=== PATIENT | male | born 1950 | race Caucasian/White ===

== ENCOUNTER 2024-01-21 15:13 | Outpatient (AMB) | payer MEDICARE, BC, SELFPAY ==
--- NOTE | 2024-01-21 15:16 | MHC.OFFVIS ---
Vital Signs 01/21/24 15:32 Height 6 ft Weight 151 lb BMI 20.5 BP 121/72 Blood Pressure Location Lt brachial Position Sitting Pulse 59 Intake Visit Reasons: bilat. ing hernias (left worse than right) VIP Intake Note: Patient is seen in office for evaluation of bilateral inguinal hernias. Pt c/o: notice a lump on both groin, reducible, had rt groin hernia and lt groin varicose repair in 1981, denies n/v/d/c, no prior imaging Accompanied by: Self / Same As Patient Allergies amoxicillin [From Augmentin] Allergy (Mild, Verified 01/21/24 16:14) unknown azithromycin [From Zithromax] Allergy (Mild, Verified 01/21/24 16:14) Swelling cephalexin [From Keflex] Allergy (Mild, Verified 01/21/24 16:14) Abdominal Pain clavulanic acid [From Augmentin] Allergy (Mild, Verified 01/21/24 16:14) unknown erythromycin base Allergy (Mild, Verified 01/21/24 16:14) Rash fluoxetine [From Prozac] Allergy (Mild, Verified 01/21/24 16:14) Unknown hyoscyamine [From Levbid] Allergy (Mild, Verified 01/21/24 16:14) dry mouth and unsteady mirtazapine Allergy (Mild, Verified 01/21/24 16:14) Unknown Sulfa (Sulfonamide Antibiotics) Allergy (Mild, Verified 01/21/24 16:14) Swelling venlafaxine [From Effexor] Allergy (Mild, Verified 01/21/24 16:14) Unknown milk products Allergy (Mild, Uncoded 01/21/24 16:14) Unknown HPI Comments Details: 73-year-old male patient presenting for evaluation of bilateral inguinal hernias. He reports a prior history of right inguinal hernia repair without mesh as well as a left inguinal varicocele repaired in the . He recently began using a rowing machine and developed pain and swelling in the bilateral groins left greater than right. He now feels the hernia has recurred especially on the left side. He is having some discomfort especially with prolonged standing or lifting. He denies nausea or vomiting but does have alternating diarrhea and constipation. He has alternating IBS D and IBS C and recently started prednisone which seems to be helping his symptoms. He has a known history of an aortic aneurysm which is being followed but most recently measured 4.8 cm. He also had occlusion of the LAD and a artery and underwent stent placement x2. He is followed by Cardiology at [facility]. He is requesting repair of the bilateral inguinal hernias because of the increased discomfort. [facility] Medical History (Updated 01/22/24 @ 16:10 by Zurdo Lindsay MD) Patent foramen ovale Labile hypertension IBS (irritable bowel syndrome) Hyperlipidemia History of anterior wall myocardial infarction Hiatal hernia GERD (gastroesophageal reflux disease) Coronary artery disease Surgical History (Updated 01/21/24 @ 16:15 by KUNAL Guillen) Hx of colonoscopy Hx of varicose vein ligation and stripping (~1981) Hx of right inguinal hernia repair (~1981) Social History (Updated 01/21/24 @ 16:15 by KUNAL Guillen) Alcohol intake: never Patient Tobacco Use Status: Never used Tobacco Review of Systems Const All systems reviewed & are unremarkable except as noted in HPI and below Denies chills, Denies fever(s), Denies headache(s), Denies poor appetite and Denies weakness ENT Denies headache(s) Card Denies chest pain, Denies irregular heart rhythm, Denies palpitations, Denies dyspnea and Reports slow heart rate Resp Denies cough, Denies excessive phlegm production and Denies dyspnea GI Denies abdominal pain, Denies bloating, Denies change in bowel habits, Denies constipation, Denies heartburn, Denies diarrhea, Denies nausea and Denies vomiting Denies difficulty urinating and Denies urinary frequency Musc Denies back pain, Denies muscle weakness and Denies numbness Skin/Breast Denies changing lesions and Denies unusual bruising Neuro Denies headache(s), Denies numbness, Denies paresthesias and Denies weakness Psych Denies anxiety and Denies depression Endo Denies palpitations Dimas/Lymph Denies lymphadenopathy Physical Exam Vital Signs: Last Vital Signs Pulse 59 01/21/24 15:32 BP 121/72 01/21/24 15:32 BMI result Body Mass Index 20.5 Const General: cooperative and no acute distress Nutritional Appearance: well nourished Orientation/consciousness: patient oriented x3 Limitations: no limitations HEENT Head: Yes normocephalic and Yes atraumatic Ears: hearing grossly normal bilaterally Resp Effort & Inspection: normal respiratory effort, no audible wheezes, no cough and no respiratory distress Cardio Jugular venous distension: no JVD GI Other: Palpable bilateral inguinal hernias with the previous scar from previous repairs. The hernia increases in size with Valsalva maneuvers but easily reduces with light pressure. Minimal tenderness is elicited from the left groin. Inspection: Yes normal to inspection Palpation (GI): Soft to palpation, nontender, no guarding and not rigid Abdomen image: 1. Recurrent left inguinal hernia 2. Small recurrent right inguinal hernia Skin Other: Warm, dry, no rash Neuro General: patient oriented x3 Extrem General: Yes no clubbing, cyanosis or edema Assessment & Plan Assessment & Plan (1) Bilateral inguinal hernia: Code(s): K40.20 - Bilateral inguinal hernia, without obstruction or gangrene, not specified as recurrent Category: Medical Qualifiers: Obstruction and gangrene presence: without obstruction or gangrene Recurrence: recurrent Qualified Code(s): K40.21 - Bilateral inguinal hernia, without obstruction or gangrene, recurrent Plan 73-year-old male patient with a history of coronary artery disease and previous [place] presenting with a recurrent bilateral inguinal hernia. The symptoms began while using a rowing machine and seemed to have increased in severity over the past several weeks. He now reports some discomfort associated with the left inguinal hernia. On examination he does have bilateral reducible recurrent inguinal hernias. The left is larger than the right. We discussed repair of the bilateral inguinal hernias with mesh and after discussion of the procedure, risks, and alternatives, he consents to the surgery. He will be scheduled as a short-stay surgery with a probable extended recovery due to his cardiac history. Coding Level of Care Code New Pt Level 4 (05824) Diagnoses Bilateral recurrent inguinal hernia without obstruction or gangrene K40.21 Obstruction and gangrene presence: without obstruction or gangrene Recurrence: recurrent
[2024-01-21 15:32] VITALS: BP 121/72; PULSE 59; BMI 20.5
== END 2024-01-21 16:13 | disposition home or self-care (01) ==
PROVIDERS: PCP Internal Medicine; Visit Provider Surgery
DX: K40.21 Bilateral inguinal hernia, without obstruction or gangrene, recurrent (principal)
CPT/HCPCS: 99204

== ENCOUNTER → 2024-01-21 15:13 | Outpatient (BNVA) | payer BC, SELFPAY | PROVIDERS: PCP Internal Medicine; Visit Provider Surgery | DX: K40.21 Bilateral inguinal hernia, without obstruction or gangrene, recurrent (principal) | CPT/HCPCS: 99202 ==

== ENCOUNTER 2024-03-12 09:41 | Outpatient (AMB) | payer MEDICARE, BC, SELFPAY ==
--- NOTE | 2024-03-12 09:53 | A.OFFVIS_ITS ---
Vital Signs 03/12/24 10:02 Height 6 ft Weight 151 lb 10.848 oz BMI 20.6 Pulse 60 Intake Visit Reasons: having pain, reassess hernias Intake Note: Patient is seen in office for re-evaluation of bilateral inguinal hernias. Pt c/o: pain been getting worse for the past couple of wks, pain is constant specially when doing stuff on the left testicle, will like to go over the surgical procedure and recovery L.OV:01/21/24 Bag Filler Required: No Accompanied by: Self / Same As Patient Allergies amoxicillin [From Augmentin] Allergy (Mild, Verified 03/12/24 10:02) unknown azithromycin [From Zithromax] Allergy (Mild, Verified 03/12/24 10:02) Swelling cephalexin [From Keflex] Allergy (Mild, Verified 03/12/24 10:02) Abdominal Pain clavulanic acid [From Augmentin] Allergy (Mild, Verified 03/12/24 10:02) unknown erythromycin base Allergy (Mild, Verified 03/12/24 10:02) Rash fluoxetine [From Prozac] Allergy (Mild, Verified 03/12/24 10:02) Unknown hyoscyamine [From Levbid] Allergy (Mild, Verified 03/12/24 10:02) dry mouth and unsteady mirtazapine Allergy (Mild, Verified 03/12/24 10:02) Unknown Sulfa (Sulfonamide Antibiotics) Allergy (Mild, Verified 03/12/24 10:02) Swelling venlafaxine [From Effexor] Allergy (Mild, Verified 03/12/24 10:02) Unknown milk products Allergy (Mild, Uncoded 03/12/24 10:02) Unknown HPI Comments Details: 73-year-old male patient returning for reevaluation of bilateral inguinal hernias. He reports a prior history of right inguinal hernia repair without mesh as well as a left inguinal varicocele repaired in the 1980s. He recently began using a rowing machine and developed pain and swelling in the bilateral groins left greater than right. He now feels the hernia has recurred especially on the left side. He is having some discomfort especially with prolonged standing or lifting. He denies nausea or vomiting but does have alternating diarrhea and constipation. He has alternating IBS D and IBS C and recently started prednisone which seems to be helping his symptoms. He has a known history of an aortic aneurysm which is being followed but most recently measured 4.8 cm. He also had occlusion of the LAD and a artery and underwent stent placement x2. He is followed by Cardiology at [facility]. He is requesting repair of the bilateral inguinal hernias because of the increased discomfort. He was evaluated by his technical support consultant and felt to be an acceptable risk for surgery. He returns today for reassessment for surgery. [facility] Medical History Patent foramen ovale Labile hypertension IBS (irritable bowel syndrome) Hyperlipidemia History of anterior wall myocardial infarction Hiatal hernia GERD (gastroesophageal reflux disease) Coronary artery disease Surgical History Hx of colonoscopy Hx of varicose vein ligation and stripping (~1981) Hx of right inguinal hernia repair (~1981) Social History Alcohol intake: never Patient Tobacco Use Status: Never used Tobacco Review of Systems Const All systems reviewed & are unremarkable except as noted in HPI and below Denies chills, Denies fever(s), Denies headache(s), Denies poor appetite and Denies weakness ENT Denies headache(s) Card Denies chest pain, Denies irregular heart rhythm, Denies palpitations, Denies dyspnea and Reports slow heart rate Resp Denies cough, Denies excessive phlegm production and Denies dyspnea GI Denies abdominal pain, Denies bloating, Denies change in bowel habits, Denies constipation, Denies heartburn, Denies diarrhea, Denies nausea and Denies vomiting Denies difficulty urinating and Denies urinary frequency Musc Denies back pain, Denies muscle weakness and Denies numbness Skin/Breast Denies changing lesions and Denies unusual bruising Neuro Denies headache(s), Denies numbness, Denies paresthesias and Denies weakness Psych Denies anxiety and Denies depression Endo Denies palpitations Dimas/Lymph Denies lymphadenopathy Physical Exam Vital Signs: Last Vital Signs Pulse 60 03/12/24 10:02 BMI result Body Mass Index 20.6 Const General: cooperative and no acute distress Nutritional Appearance: well nourished Orientation/consciousness: patient oriented x3 Limitations: no limitations HEENT Head: Yes normocephalic and Yes atraumatic Ears: hearing grossly normal bilaterally Resp Effort & Inspection: normal respiratory effort, no audible wheezes, no cough and no respiratory distress Cardio Jugular venous distension: no JVD GI Other: Palpable bilateral inguinal hernias with the previous scar from previous repairs. The hernia increases in size with Valsalva maneuvers but easily reduces with light pressure. Minimal tenderness is elicited from the left groin. Inspection: Yes normal to inspection Palpation (GI): Soft to palpation, nontender, no guarding and not rigid Skin Other: Warm, dry, no rash Neuro General: patient oriented x3 Extrem General: Yes no clubbing, cyanosis or edema Assessment & Plan Assessment & Plan (1) Bilateral inguinal hernia: Code(s): K40.20 - Bilateral inguinal hernia, without obstruction or gangrene, not specified as recurrent Category: Medical Qualifiers: Obstruction and gangrene presence: without obstruction or gangrene Recurrence: recurrent Qualified Code(s): K40.21 - Bilateral inguinal hernia, without obstruction or gangrene, recurrent Plan 73-year-old male patient with a history of coronary artery disease and previous [place] presenting with a recurrent bilateral inguinal hernia. The symptoms began while using a rowing machine and seemed to have increased in severity over the past several weeks. He now reports some discomfort associated with the left inguinal hernia. On examination today he continues to have bilateral reducible inguinal hernias left greater than right. We discussed the repair of bilateral inguinal hernias with mesh including the risks, benefits and alternatives. He gives his consent for the surgery. He will be scheduled as a short-stay surgery possibly with an extended recovery. Coding Level of Care Code Est Pt Level 3 (18860) Diagnoses Bilateral recurrent inguinal hernia without obstruction or gangrene K40.21 Obstruction and gangrene presence: without obstruction or gangrene Recurrence: recurrent
[2024-03-12 10:02] VITALS: PULSE 60; BMI 20.6
== END 2024-03-12 10:31 | disposition home or self-care (01) ==
PROVIDERS: PCP Internal Medicine; Visit Provider Surgery
DX: K40.21 Bilateral inguinal hernia, without obstruction or gangrene, recurrent (principal)
CPT/HCPCS: 99213

== ENCOUNTER → 2024-03-12 09:41 | Outpatient (BNVA) | payer MEDICARE, BC, SELFPAY | PROVIDERS: PCP Internal Medicine; Visit Provider Surgery | DX: K40.21 Bilateral inguinal hernia, without obstruction or gangrene, recurrent (principal) | CPT/HCPCS: 99212 ==

== ENCOUNTER 2024-06-09 15:41 | Outpatient (AMB) | payer MEDICARE, SELFPAY ==
--- NOTE | 2024-06-09 15:43 | MHC.OFFVIS ---
Vital Signs 06/09/24 15:50 Height 6 ft Weight 149 lb 8 oz BMI 20.3 BP 111/62 Blood Pressure Location Lt brachial Position Sitting Pulse 53 Intake Visit Reasons: has questions and hernia is bigger Intake Note: Patient is seen in office to discuss some concerns prior to hernia surgery. Pt c/o: admits to increase in size, has question regarding upcoming surgery L.OV:03/12/24 Department Helper Required: No Accompanied by: Self / Same As Patient Allergies amoxicillin [From Augmentin] Allergy (Severe, Verified 06/09/24 15:44) Abdominal Pain, SOB azithromycin [From Zithromax] Allergy (Severe, Verified 06/09/24 15:44) Hives, swelling clavulanic acid [From Augmentin] Allergy (Severe, Verified 06/09/24 15:44) Abdominal Pain, SOB fluoxetine [From Prozac] Allergy (Severe, Verified 06/09/24 15:44) panic hyoscyamine [From Levbid] Allergy (Severe, Verified 06/09/24 15:44) dry mouth and unsteady Sulfa (Sulfonamide Antibiotics) Allergy (Severe, Verified 06/09/24 15:44) throat closes cephalexin [From Keflex] Allergy (Mild, Verified 06/09/24 15:44) Abdominal Pain erythromycin base Allergy (Mild, Verified 06/09/24 15:44) Rash mirtazapine Allergy (Mild, Verified 06/09/24 15:44) Unknown venlafaxine [From Effexor] Allergy (Mild, Verified 06/09/24 15:44) Unknown milk products Allergy (Mild, Uncoded 06/09/24 15:44) Unknown HPI Comments Details: 74-year-old male returning for re-evaluation of bilateral inguinal hernias. He was previously scheduled for a repair of the bilateral inguinal hernias earlier in the year however developed COVID in the surgery was canceled. Since this time he feels the left inguinal hernia has increased in size. He denies any symptoms in the right groin. As previously noted, he underwent a prior right inguinal hernia repair without mesh as well as a left inguinal varicocele repair in the . After using a rowing machine, he began to note pain and swelling in the bilateral groins left greater than right. He denies any nausea, vomiting, diarrhea or constipation. He was recently evaluated by his paper sheeter in [place] and got a good report. He is also being followed for a thoracic aortic aneurysm. He underwent cardiac stent placement x2. The symptomatic left inguinal hernia repaired and hold off on the right inguinal hernia. [facility] Medical History History of skin cancer Arthritis Back pain Neck pain Depression Anxiety Numbness and tingling of both feet Polyp, nasal sinus Cardiomyopathy History of palpitations Ascending aortic aneurysm Patent foramen ovale Labile hypertension IBS (irritable bowel syndrome) Hyperlipidemia History of anterior wall myocardial infarction Hiatal hernia GERD (gastroesophageal reflux disease) Coronary artery disease Surgical History H/O heart artery stent Hx of angioplasty Hx of cardiac catheterization Hx of colonoscopy Hx of varicose vein ligation and stripping (~1981) Hx of right inguinal hernia repair (~1981) Social History Household Members: None Housing: House Are you a primary care services manager to a significant other at home: No Do you presently have visiting nurse or other home services: No 75 years or older and lives alone: No Alcohol intake: never Patient Tobacco Use Status: Never used Tobacco Review of Systems Const All systems reviewed & are unremarkable except as noted in HPI and below Denies chills, Denies fever(s), Denies headache(s), Denies poor appetite and Denies weakness ENT Denies headache(s) Card Denies chest pain, Denies irregular heart rhythm, Denies palpitations, Denies dyspnea and Reports slow heart rate Resp Denies cough, Denies excessive phlegm production and Denies dyspnea GI Denies abdominal pain, Denies bloating, Denies change in bowel habits, Denies constipation, Denies heartburn, Denies diarrhea, Denies nausea and Denies vomiting Denies difficulty urinating and Denies urinary frequency Musc Denies back pain, Denies muscle weakness and Denies numbness Skin/Breast Denies changing lesions and Denies unusual bruising Neuro Denies headache(s), Denies numbness, Denies paresthesias and Denies weakness Psych Denies anxiety and Denies depression Endo Denies palpitations Dimas/Lymph Denies lymphadenopathy Physical Exam Const General: no acute distress Nutritional Appearance: well nourished Orientation/consciousness: patient oriented x3 Limitations: no limitations HEENT Head: Yes normocephalic and Yes atraumatic Ears: hearing grossly normal bilaterally Resp Effort & Inspection: normal respiratory effort, no audible wheezes, no cough and no respiratory distress Cardio Jugular venous distension: no JVD GI Other: Patient was examined in the standing position. A prominent left inguinal hernias easily identified. This increases in size with Valsalva maneuvers but easily reduces with light pressure. There are no overlying skin changes other than the previous incision. The right inguinal hernia is quite small and can safely be observed. Inspection: Yes normal to inspection Palpation (GI): Soft to palpation, nontender, no guarding and not rigid Skin Other: Warm, dry, no rash Neuro General: patient oriented x3 Extrem General: Yes no clubbing, cyanosis or edema Assessment & Plan Assessment & Plan (1) Bilateral inguinal hernia: Code(s): K40.20 - Bilateral inguinal hernia, without obstruction or gangrene, not specified as recurrent Category: Medical Qualifiers: Obstruction and gangrene presence: without obstruction or gangrene Recurrence: recurrent Qualified Code(s): K40.21 - Bilateral inguinal hernia, without obstruction or gangrene, recurrent Plan 74-year-old male patient with a history of coronary artery disease presenting with a symptomatic left inguinal hernia, recurrent. The right inguinal hernia is quite small can safely be observed. I once again reviewed the procedure, risks and alternatives regarding repair of the left inguinal hernia with mesh and he gives consent for the surgery. This will be as a extended short-stay. Coding Level of Care Code Est Pt Level 3 (62732) Diagnoses Bilateral recurrent inguinal hernia without obstruction or gangrene K40.21 Obstruction and gangrene presence: without obstruction or gangrene Recurrence: recurrent
[2024-06-09 15:50] VITALS: BP 111/62; PULSE 53; BMI 20.3
--- OUTSIDE RECORDS SUMMARY | 2024-06-09 18:58 | XMS_ITS | Clinical Summary ---
Author Organization [facility], Address [address] [place] [address] [place] [address] Phone Care Team Providers Care Commercial Hvac Technician Name Role Phone Jj Seals MD Primary Care Provider [phone] Allergies Active Allergy Reactions Criticality Noted Date Comments Amoxicillin-Pot Clavulanate 08/21/2017 Azithromycin Rash Low 05/28/2013 Cephalexin Other (see comments),Nausea And Vomiting Low 07/10/2022 Other reaction(s): abdominal pain Erythromycin Rash Low 05/28/2013 Fluoxetine Other (see comments) Medium 07/10/2022 Hyoscyamine Other (see comments) 07/10/2022 Other Reaction(s): dry mouth and unsteady Other reaction(s): dry mouth and unsteady Sulfa Antibiotics Other (see comments),GI intolerance Medium 05/28/2013 Other Reaction(s): Swollen throat Other Reaction(s): Throat Tightness Other reaction(s): GI Upset, Swollen throat, Throat Tightness Other reaction(s): Other (see comments) Venlafaxine Other (see comments) Medium 07/10/2022 Medications buPROPion (ZYBAN) 150 MG 12 hr tablet Take 150 mg by mouth 2 (two) times a day Do not crush, chew, or split. Active tadalafil (CIALIS) 10 MG tablet Take 10 mg by mouth 1 (one) time each day if needed for erectile dysfunction Active clonazePAM (KlonoPIN) 0.5 MG tablet Take 0.5 mg by mouth 2 (two) times a day Active ketoconazole (NIZORAL) 2 % cream Apply topically 1 (one) time each day Active Multiple Vitamin (multivitamin) capsule Take 1 capsule by mouth 1 (one) time each day Active finasteride (PROPECIA) 1 MG tablet Take by mouth 1 (one) time each day Do not crush, chew, or split. Active valACYclovir (VALTREX) 500 MG tablet Take 500 mg by mouth 2 (two) times a day Active cyanocobalamin (VITAMIN B-12) 1000 MCG tablet Take 100 mcg by mouth daily Active aspirin 325 MG tablet Take 1 tablet by mouth daily Active atorvastatin (LIPITOR) 80 MG tablet 2 Active Procto-Med HC 2.5 % cream 2 Active metoprolol succinate XL (TOPROL XL) 25 MG 24 hr tablet Take 12.5 mg by mouth 1 (one) time each day 2 Active pantoprazole (PROTONIX) 40 MG EC tablet 2 Active Jardiance 10 MG tablet 3 Active ketoconazole (NIZORAL) 2 % shampoo 2 Active spironolactone (ALDACTONE) 25 MG tablet Take 12.5 mg by mouth 1 (one) time each day 3 Active valsartan (DIOVAN) 40 MG tablet Take 20 mg by mouth 2 (two) times a day 3 Active sertraline (ZOLOFT) 50 MG tablet 4 Active Active Problems Problem Noted Date Diagnosed Date Hyperlipidemia 05/22/2022 Coronary arteriosclerosis 05/22/2022 Gastroesophageal reflux disease 01/09/2021 Hypertension 02/08/2020 Encounters Date Type Department Care Team Description 04/29/2024 Documentation Only [facility], [address] [place] [address] Berkley Harper MA from Last 3 Months Immunizations Name Administration Dates Next Due Influenza Split High Dose Preservative Free IM 0 12/30/2019 Social History Tobacco Use Types Packs/Day Years Used Date Smoking Tobacco: Never Smokeless Tobacco: Never Alcohol Use Standard Drinks/Week Comments Never 0 (1 standard drink = 0.6 oz pur e alcohol) AUDIT-C Answer Date Recorded Q1: How often do you have a drink containing alc ohol? Never 02/08/2020 Average Number of Drinks Not on file 020 Frequency of Binge Drinking Not on file 12/2019 Sex and Gender Information Value Date Recorded Sex Assigned at Not on file Legal Sex Male 4:01 PM EDT Gender Identity Not on file Sexual Orientation Not on file Last Filed Vital Signs Vital Sign Reading Time Taken Comments Blood Pressure 96/64 12/30/2023 4:39 PM EDT Pulse - - Temperature - - Respiratory Rate - - Oxygen Saturation - - Inhaled Oxygen Concentration - - Weight - - Height - - Body Mass Index - - Plan of Treatment Upcoming Encounters Date Type Department Care Team (Late st Contact Info) Description 06/29/2024 10:45 AM EDT Office Visit [facility], [address] [place] [address] Smooth Ernst MD [address] [place] [address] Health Maintenance Due Date Last Done Comments Colorectal Cancer Screening: Annual FOBT 2001 Colorectal Cancer Screening: Colonoscopy 2001 Colorectal Cancer Screening: Sigmoidoscopy 2001 Pneumococcal Vaccine: 65+ Years (2 of 2 - PPSV23 or PCV20) 07/18/2017 05/23/2017 Influenza Vaccine (#1) 2023 2, 12/30/2019, 12/30/2019, Additional history exists Hepatitis B Vaccine Aged Out No longe r eligible based on patient's age to complete this topic Insurance MEDICARE [facility] Care Teams Commercial Hvac Technician Relationship Specialty Start Date End Date Jj Seals MD [address], [place] PCP - General Internal Medicine 01/18/20
--- OUTSIDE RECORDS SUMMARY | 2024-06-09 18:58 | XMS_ITS | Encounter Summary ---
Author Organization [facility] Address [address] [place] [address] Care Team Providers Care Drive Thru Order Taker Name Role Phone Jj Seals MD Primary Care Provider [phone] Reason for Visit * Reason Onset Date Comments No Call No Show 06/09/2024 Letter sent Encounter Details Date Type Department Care Team (Late st Contact Info) Description 06/09/2024 Telephone [facility] Cardiology [facility] [address] [address] Zurdo Dunne MD [address] [place] [id number] No Call No Show (Letter sent) Social History Tobacco Use Types Packs/Day Years Used Date Smoking Tobacco: Never Smokeless Tobacco: Never Alcohol Use Standard Drinks/Week Comments Not Currently 0 (1 standard drink = 0.6 oz pur e alcohol) Sex and Gender Information Value Date Recorded Sex Assigned at Not on file Legal Sex Male 7:06 PM EST Gender Identity Not on file Sexual Orientation Not on file documented as of this encounter Progress Notes * Josseline Villalta MA - 06/09/2024 11:18 AM EDT Left patient voicemail regarding recent no-show. Advised patient of no-show policy and if would like to reschedule to call into our office. Will mail out no-show policy letter to address on file. documented in this encounter Plan of Treatment Not on file documented as of this encounter Visit Diagnoses Not on filedocumented in this encounter Care Teams Drive Thru Order Taker Relationship Specialty Start Date End Date Jj Seals MD [facility] [address] [id number] PCP - General Internal Medicine 02/23/20 documented as of this encounter
--- OUTSIDE RECORDS SUMMARY | 2024-06-09 18:58 | XMS_ITS ---
Author Name [facility] Organization Unknown History of Medication Use Medication Directions Dispensed Refills Start Date End Date Stat clotrimazole-betameth asone (LOTRISONE) cream Apply topically 2 (two) times a day. 11/21/2023 active atorvastatin (LIPITOR) 80 MG tablet 06/30/2021 active PANTOprazole (PROTONIX) 40 MG EC tablet 11/06/2022 active lactase (LACTAID) 3000 units tablet Take 3,000 Units by mouth Once before discharge. active clonazePAM (KlonoPIN) 0.5 MG tablet 11/09/2022 active metoPROLOL SUCCINATE (TOPROL-XL) 25 MG 24 hr tablet Take 12.5 mg by mouth. 09/12/2021 active valACYclovir (VALTREX) 500 MG tablet See Instructions, TAKE 1 TABLET BY MOUTH EVERY 12 HOURS FOR 3 DAYS THEN TAKE 1 TABLET DAILY, # 90 tablet, Refills 0, Maintenance, 05/08/22 13:12:00 EST, Instructions Replace Required Details, Route to Pharmacy Electronically, [facility] #[id number], 1... 05/08/2022 active finasteride (PROPECIA) 1 MG tablet Take 1 tablet by mouth. 03/05/2022 active amitriptyline (ELAVIL) 10 MG tablet 10/15/2022 act uche cyclobenzaprine (FLEXERIL) 5 MG tablet Take 1 tablet (5 mg total) by mouth 3 times daily (every 8 hours) as needed for muscle spasms. 11/22/2022 11/28/2022 active Problems Problem Status Onset Date Problem Type Date of Resoluti on Source Right wrist sprain, initial encounter active EncounterDiagnosisAct H [facility] Immunizations Vaccine Date Source Lot Number Status Covid-19 mRNA Primary Series Vaccine - Moderna 0.5 mL Full Dose 06/09/2020 [facility] completed Covid-19 mRNA Primary Series Vaccine - Moderna 0.5 mL Full Dose 02/14/2021 [facility] [id number] completed Covid-19 mRNA Primary Series Vaccine - Moderna 0.5 mL Full Dose 05/12/2020 [facility] UNK completed Encounters Encounter Type Encounter Reason Primary Diagnosis Location Date Ambulatory [facility] 12/09/2023 Ambulatory Unspecified sprain of right wrist, initial encounter Unspecified sprain of right wrist, initial encounter [facility] 12/09/2023 Ambulatory Rash Rash [facility] 11/21/2023 Ambulatory Cervicalgia Cervicalgia [facility] 11/22/2022 Care Team Organization Name Specialty Phone Email Start Date End Da te [facility] 11/22/2022 11/22/2022 [facility] 11/22/2021
--- OUTSIDE RECORDS SUMMARY | 2024-06-09 18:58 | XMS_ITS | Clinical Summary ---
Author Organization [facility] Address [address] [place] [address] Care Team Providers Care Psychiatric Cns Name Role Phone Unknown Primary Care Provider [phone] Allergies Active Allergy Reactions Criticality Noted Date Comments Amoxicillin-Pot Clavulanate Other (See Comments) High 08/21/2017 Chest pain, syncope Other reaction(s): Other (See Comments), Syncope Chest pain, syncope Cephalexin GI Intolerance/Nausea/V omiting Low 07/10/2022 Other reaction(s): abdominal pain Erythromycin Rash/Dermatitis Low 05/28/2013 Fluoxetine Unknown/Patient and Family Unable to Define Medium 07/10/2022 Hyoscyamine Other (See Comments) 07/10/2022 Other reaction(s): dry mouth and unsteady Sulfa Antibiotics Other (See Comments) 05/28/19 14 Venlafaxine Unknown/Patient and Family Unable to Define Medium 07/10/2022 Medications Medication Sig Dispensed Refills Start Date End Date Status atorvastatin (LIPITOR) 80 MG tablet 06/30/2021 Active clonazePAM (KlonoPIN) 0.5 MG tablet 11/09/2022 Active clopidogrel (PLAVIX) 75 MG tablet 06/30/2021 Active cyanocobalamin (VITAMIN B12) 1000 MCG tablet Take 100 mcg by mouth. Active Jardiance 10 MG tablet 09/20/2022 Active lactase (LACTAID) 3000 units tablet Take 3,000 Units by mouth Once before discharge. Active metoPROLOL SUCCINATE (TOPROL-XL) 25 MG 24 hr tablet Take 12.5 mg by mouth. 09/12/2021 Active valsartan (DIOVAN) 40 MG tablet 09/12/2022 Active valACYclovir (VALTREX) 500 MG tablet See Instructions, TAKE 1 TABLET BY MOUTH EVERY 12 HOURS FOR 3 DAYS THEN TAKE 1 TABLET DAILY, # 90 tablet, Refills 0, Maintenance, 05/08/22 13:12:00 EST, Instructions Replace Required Details, Route to Pharmacy Electronically, [facility] #[id number], 1... 05/08/2022 Active tadalafil (CIALIS) 10 MG tablet Take 1 tablet by mouth. 04/21/2021 Active PANTOprazole (PROTONIX) 40 MG EC tablet 11/06/2022 Active finasteride (PROPECIA) 1 MG tablet Take 1 tablet by mouth. 03/05/2022 Active aspirin enteric coated (ECOTRIN LOW STRENGTH) 81 MG EC tablet Take 81 mg by mouth. 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 30 tablet 11/22/2022 Active colchicine (COLCRYS) 0.6 mg tablet 11/01/2023 Active PANTOprazole (PROTONIX) 40 MG EC tablet Take 40 mg by mouth daily. 07/05/2022 Active clotrimazole-betam ethasone (LOTRISONE) creamIndications:R sterling Apply topically 2 (two) times a day. 45 g 11/21/2023 Active Immunizations Name Administration Dates Next Due Covid-19 mRNA Primary Series Vaccine - Moderna 0.5 mL Full Dose 02/14/2021,06/09/2020,05/12/2020 Social History Tobacco Use Types Packs/Day Years Used Date Smoking Tobacco: Never Smokeless Tobacco: Never Sex and Gender Information Value Date Recorded Sex Assigned at Not on file Gender Identity Not on file Sexual Orientation Not on file Last Filed Vital Signs Vital Sign Reading Time Taken Comments Blood Pressure 143/98 12/09/2023 7:14 PM EDT Pulse 64 12/09/2023 7:14 PM EDT Temperature 36.7 ??C (98 ??F) 12/09/2023 7:14 PM EDT Respiratory Rate 17 12/09/2023 7:14 PM EDT Oxygen Saturation 99% 12/09/2023 7:14 PM EDT Inhaled Oxygen Concentration - - Weight 68.9 kg (152 lb) 11/22/2022 5:09 PM EDT Height 182.9 cm (6') 11/22/2022 5:09 PM EDT Body Mass Index 20.61 11/22/2022 5:09 PM EDT Plan of Treatment Health Maintenance Due Date Last Done Comments Hepatitis C Virus Screening 1950 DTaP/Tdap/Td Vaccines (1 - Tdap) 1971 Colonoscopy 1997 Pneumococcal Vaccines 50+ (1 of 1 - PCV) 2002 Zoster (Shingles) Vaccine (1 of 2) 2002 RSV Vaccine 60 years and older and Patients (1 - Risk 60-74 years 1-dose series) 2012 Influenza Vaccine 10/31/2023 02/04/2023, , 04/04/2021, Additional history exists COVID-19 Vaccine ( season) 2023 02/14/2021, 06/09/2020, 05/12/2020 Hepatitis B Vaccines Aged Out No long er eligible based on patient's age to complete this topic Care Teams Psychiatric Cns Relationship Specialty Start Date End Date Unknown Unknow Provider Address PCP - General 04/01/21
--- OUTSIDE RECORDS SUMMARY | 2024-06-09 18:58 | XMS_ITS | Clinical Summary ---
Author Organization [facility] Address [address] [place], [place] [address] Phone Care Team Providers Care Supervisor Carpenters Name Role Phone Jj Seals MD Primary Care Provider [phone] Allergies Active Allergy Reactions Criticality Noted Date Comments Amoxicillin-Pot Clavulanate Other 05/16/2021 Syncope Chest tightness Azithromycin Hives,Rash 05/16/2021 Cephalexin 07/11/2021 Abd pain Clavulanic Acid 05/16/2021 Erythromycin Rash 05/22/2021 Fluoxetine 07/11/2021 Sulfa (Sulfonamide Antibiotics) Nausea And Vomiting 05/22/2021 Throat tightness Sulfamethoxazole 05/16/2021 Trimethoprim 05/16/2021 Venlafaxine 07/11/2021 Medications aspirin 81 mg EC tablet Take 81 mg by mouth daily. Active atorvastatin (LIPITOR) 80 mg tablet Take 1 tablet (80 mg total) by mouth 1 (one) time each day. Active clonazePAM (KlonoPIN) 0.5 mg tablet Take 0.5 mg by mouth 2 times daily as needed. Active empagliflozin (Jardiance) 10 mg tablet Take 10 mg by mouth daily. Active finasteride (PROPECIA) 1 mg tablet Take 1 tablet (1 mg total) by mouth 1 (one) time each day. Active metoprolol succinate (TOPROL-XL) 25 mg 24 hr tablet Take 1 tablet (25 mg total) by mouth 1 (one) time each day. 3 Active tadalafiL (CIALIS) 10 mg tablet Take 0.5 Tablets by mouth as needed. Active valacyclovir HCl (VALACYCLOVIR ORAL) valACYclovir HCl (VALTREX OR) Active pantoprazole (PROTONIX) 40 mg EC tablet Take 1 tablet (40 mg total) by mouth 1 (one) time each day before breakfast. Do not crush, chew, or split. Active valsartan (DIOVAN) 40 mg tablet Take 0.5 tablets (20 mg total) by mouth 1 (one) time each day. Active colchicine (MITIGARE) 0.6 mg capsule capsule Take 1 capsule (0.6 mg total) by mouth 1 (one) time each day. Active clopidogreL (PLAVIX) 75 mg tablet Take 1 tablet (75 mg total) by mouth 1 (one) time each day. Active Active Problems Problem Noted Date Diagnosed Date SOB (shortness of breath) 02/20/2024 Assessment & Plan (02/24/2024 5:33 PM EST): Patient has fatigue and impaired effort capacity. There is a significant superimposed element of depression. The patient has stopped attending cardiac rehab and is only exercising quite minimally. He is sleeping poorly and eating poorly and has insight into his depression. He has a meeting with Dr. Seals tomorrow. I have encouraged him to pursue psychotherapy and to discuss with Dr. Seals potential pharmacologic interventions. Orders: Transthoracic echocardiogram (TTE) complete with PRN contrast, bubble, strain, and 3D order panel; Future Burning chest pain 05/01/2022 Ischemic cardiomyopathy 08/30/2021 Assessment & Plan (02/24/2024 5:33 PM EST): The patient has had widely variable measurements of his ejection fraction which improved after his myocardial infarction from 25% to around 50% on medical therapy. Several months ago he presented with constitutional symptoms and had significant reduction in his ejection fraction. There was no clinical evidence of congestive heart failure. His EF was 25% by echo and 43% by nuclear scan. His LVEDP was low at the time of his catheterization. We will continue guideline directed medical therapy as tolerated in the setting of borderline blood pressures and bradycardia. I will plan a repeat echocardiogram in about 3 months. If his ejection fraction remains markedly impaired we would consider defibrillator implantation. Orders: ECG 12 lead Transthoracic echocardiogram (TTE) complete with PRN contrast, bubble, strain, and 3D order panel; Future HFrEF (heart failure with reduced ejection fract ion) 07/12/2021 ST elevation myocardial infa rction involving left anterior descending (LAD) coronary artery 07/12/2021 Thoracic aortic aneurysm 07/12/2021 Transient elevated blood pressure 07/11/2021 Bilateral tinnitus 05/22/2021 GERD (gastroesophageal reflux disease) IBS (irritable bowel syndrome) 05/22/2021 Insomnia 05/22/2021 Ascending aorta dilatation 05/16/2021 Assessment & Plan (02/24/2024 5:33 PM EST): Orders: Transthoracic echocardiogram (TTE) complete with PRN contrast, bubble, strain, and 3D order panel; Future Disease of pericardium 05/16/2021 Mixed hyperlipidemia 05/16/2021 Assessment & Plan (02/24/2024 5:33 PM EST): Patient has responded favorably to aggressive lipid-lowering therapy to achieve an LDL cholesterol less than 70 mg/dL. PFO (patent foramen ovale) 05/16/2021 Primary hypertension 05/16/2021 Assessment & Plan (02/24/2024 5:33 PM EST): The patient has a history of hypertension. His blood pressures have been running on the low side since his myocardial infarction in conjunction with vasodilator therapy. Orders: ECG 12 lead Encounters Date Type Department Care Team Description 06/09/2024 Telephone [facility] [address] [place] [address] Zurdo Dunne MD No Call No Show (Letter sent) from Last 3 Months Immunizations Name Administration Dates Next Due Influenza trivalent, 0.5mL ( Fluzone High-dose) 65yo and older 04/04/2021 Pneumococcal conjugate 13 va lent (Prevnar 13, PCV13) 2mo and older 05/23/2017 Td Tetanus diptheria (Tdvax) 7yo and older 10/20,04/01/2000 Tdap Tetanus diptheria acell ular pertussis (Boostrix; Adacel) 7yo and older 02/28/2021 Surgical History Surgery Date Site/Laterality Comments FOREARM FASCIOTOMY Left COLONOSCOPY 2012, 2013, 2018, 2020 HERNIA REPAIR Right WITH L SCROTAL VARICOCELECTOMY OTHER SURGICAL HISTORY Transanal endoscopic operation CARDIAC [place]HETERIZ[place] 12[place]04/[place] [facility] [place] INDICATIONS:UNSTABLE ANGINA Medical History Medical History Date Comments Anxiety Ascending aorta dilatation (CMS/HCC) 05/2021 Bilateral tinnitus 05/2021 Disease of pericardium 05/2021 GERD (gastroesophageal reflux disease) 05/2021 H/O irritable bowel syndrome History of colon polyps 05/2021 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 Hypertension IBS (irritable bowel syndrome) Insomnia 05/2021 Mixed hyperlipidemia 05/16/2021 Myositis PFO (patent foramen ovale) 05/16/2021 Thoracic aortic aneurysm (CMS/HCC) Family History Medical History Relation Name Comments Prostate cancer Brother Heart attack Father Stroke Maternal Grandfather Aneurysm Maternal Grandmother COPD Mother Heart attack Mother Relation Name Status Comments Brother Father (Age 49) Maternal Grandfather Maternal Grandmother Mother Social History Tobacco Use Types Packs/Day Years Used Date Smoking Tobacco: Never Smokeless Tobacco: Never Tobacco Cessation:Counseling Given: Not Answered Alcohol Use Standard Drinks/Week Comments Not Currently 0 (1 standard drink = 0.6 oz pur e alcohol) Sex and Gender Information Value Date Recorded Sex Assigned at Not on file Legal Sex Male 7:06 PM EST Gender Identity Not on file Sexual Orientation Not on file Obstetrics History Last Filed Vital Signs Vital Sign Reading Time Taken Comments Blood Pressure 96/62 02/24/2024 3:50 PM EST Pulse 48 02/24/2024 3:50 PM EST Temperature - - Respiratory Rate - - Oxygen Saturation 99% 02/24/2024 3:50 PM EST Inhaled Oxygen Concentration - - Weight 68 kg (150 lb) 02/24/2024 3:50 PM EST Height 182.9 cm (6') 02/24/2024 3:50 PM EST Body Mass Index 20.34 02/24/2024 3:50 PM EST Plan of Treatment Health Maintenance Due Date Last Done Comments Zoster Vaccines (1 of 2) 2002 RSV Immunization Patients 60+ Years Old (1 - Risk 60-74 years 1-dose series) 2012 Pneumococcal Vaccine: 50+ Years (2 of 2 - PPSV23) 05/23/2018 05/23/2017 Cholesterol Screening (Lipid Panel) 03/03/2022 Falls Risk Assessment 03/03/2022 Hepatitis C Screening 03/03/2022 Medicare Annual Wellness Visit 03/03/2022 Social Influencers of Health Screening 03/03/2022 Hypertension/CHF/CAD Annual BMP Blood Test 03/10/2022 01/17/2021 Depression Screening 02/19/2023 02/19/2022 Colorectal Cancer Screening: Colonoscopy 07/19/2030 07/19/2020 DTaP,Tdap,and Td Vaccines (4 - Td or Tdap) 02/28/2031 02/28/2021, 10/20/2008, 04/01/2000 Influenza Vaccine Completed 01/14/2024, , 12/25/2021, Additional history exists COVID-19 Vaccine Completed 02/19/2024, 03/2022, 02/14/2021, Additional history exists HIB Vaccines Aged Out No longer eligi ble based on patient's age to complete this topic HPV Vaccines Aged Out No longer eligi ble based on patient's age to complete this topic Hepatitis A Vaccines Aged Out No long er eligible based on patient's age to complete this topic Hepatitis B Vaccines Aged Out No long er eligible based on patient's age to complete this topic IPV Vaccines Aged Out No longer eligi ble based on patient's age to complete this topic MMR Vaccines Aged Out No longer eligi ble based on patient's age to complete this topic Meningococcal ACWY Vaccine Aged Out N o longer eligible based on patient's age to complete this topic Meningococcal B Vacine Aged Out No lo nger eligible based on patient's age to complete this topic RSV Immunization Patients Under 20 months Aged Out No longer eligible based on patient's age to complete this topic Varicella Vaccines Aged Out No longer eligible based on patient's age to complete this topic Procedures Procedure Name Priority Date/Time Associated Diagnosis Comments HM COLONOSCOPY Routine 07/19/2020 from Last 3 Months or Most Recently Relevant to Health Maintenance Results * Colonoscopy (07/19/2020) Colonoscopy no interpretation , abstracted Anatomical Region Laterality Modality Other Historical Provider HEALTH MAINTENANCE Final Result from Last 3 Months or Most Recently Relevant to Health Maintenance Insurance MEDICARE [facility] Care Teams Supervisor Carpenters Relationship Specialty Start Date End Date Jj Seals MD [address] [address] PCP - General Internal Medicine 02/23/20
--- OUTSIDE RECORDS SUMMARY | 2024-06-09 18:58 | XMS_ITS | Encounter Summary ---
Author Organization [facility], Address [address] [place] [phone] Phone Care Team Providers Care Rug Cleaning Supervisor Name Role Phone Jj Seals MD Primary Care Provider [phone] Encounter Details Date Type Department Care Team (Late st Contact Info) Description 04/29/2024 Documentation Only [facility] [address] [place] [address] [place] [address] [place] [address] Social History Tobacco Use Types Packs/Day Years [...] on file documented as of this encounter Plan of Treatment Upcoming Encounters Date Type Department Care Team (Late st Contact Info) Description 06/29/2024 10:45 AM EDT Office Visit [facility] [address] [place] [phone] Smooth Ernst MD [address] [place] [address] documented as of this encounter Visit Diagnoses Not on filedocumented in this encounter Care Teams Rug Cleaning Supervisor Relationship Specialty Start Date End Date Jj Seals MD [address], [place] PCP - General Internal Medicine 01/18/20 documented as of this encounter
--- OUTSIDE RECORDS SUMMARY | 2024-06-09 18:58 | XMS_ITS | Encounter Summary ---
Author Organization [facility] Address [address] [place] [address] Care Team Providers Care Feed Mixer Name Role Phone Unknown Primary Care Provider [phone] Encounter Details Date Type Department Care Team (Late st Contact Info) Description 12/09/2023 7:19 PM EDT Hospital Encounter [facility] [address] [place] [address] Sandy Cheema PA-C [address] [place] [address] Social History Tobacco Use Types Packs/Day Years Used Date Smoking Tobacco: Never Smokeless Tobacco: Never Sex and Gender Information Value Date Recorded Sex Assigned at Not on file Gender Identity Not on file Sexual Orientation Not on file documented as of this encounter Plan of Treatment Not on file documented as of this encounter Procedures Procedure Name Priority Date/Time Associated Diagnosis Comments XR WRIST 3+ VIEWS-RIGHT STAT 12/09/2023 7:23 PM EDT Right wrist sprain, initial encounter documented in this encounter Results * XR Wrist 3+ views-Right (12/09/2023 7:23 PM EDT) Anatomical Region Laterality Modality Wrist Right Computed Radiogr aphy 12/09/2023 7:23 PM EDT Impressions 12/09/2023 7:24 PM EDT No acute fracture or dislocation. Moderate basal joint degenerative arthrosis. Narrative 12/09/2023 7:24 PM EDT XR WRIST 3+ VIEWS-RIGHT: 12/09/2023 7:20 PM CLINICAL HISTORY: fall, right wrist injury, r/o fx No prior studies. FINDINGS: No acute fracture or dislocation. Moderate basal joint degenerative arthrosis. Joint spaces and articular surfaces are otherwise preserved. No erosion or aggressive osseous destruction. No focal soft tissue swelling or abnormal soft tissue calcification. Procedure Note Tu Green MD - 12/09/2023 XR WRIST 3+ VIEWS-RIGHT: 12/09/2023 7:20 PM CLINICAL HISTORY: fall, right wrist injury, r/o fx No prior studies. FINDINGS: No acute fracture or dislocation. Moderate basal joint degenerativearthrosis. Joint spaces and articular surfaces are otherwise preserved. Noerosion or aggressive osseous destruction. No focal soft tissue swellingor abnormal soft tissue calcification. IMPRESSION: No acute fracture or dislocation. Moderate basal joint degenerativearthrosis. Sandy Cheema PA-C [facility] ORDERABLES documented in this encounter Visit Diagnoses Not on filedocumented in this encounter Care Teams Feed Mixer Relationship Specialty Start Date End Date Unknown Unknow Provider Address PCP - General 04/01/21 documented as of this encounter
== END 2024-06-09 16:02 | disposition home or self-care (01) ==
LOC: HO.HGS 15:41
PROVIDERS: PCP Internal Medicine; Visit Provider Surgery
DX: K40.21 Bilateral inguinal hernia, without obstruction or gangrene, recurrent (principal)
CPT/HCPCS: 99213

== ENCOUNTER → 2024-06-09 15:41 | Outpatient (BNVA) | payer MEDICARE, SELFPAY | PROVIDERS: PCP Internal Medicine; Visit Provider Surgery | DX: K40.21 Bilateral inguinal hernia, without obstruction or gangrene, recurrent (principal) | CPT/HCPCS: 99212 ==

== ENCOUNTER 2024-06-15 11:20 | Day surgery (SDC) | payer MEDICARE, SELFPAY ==
[2024-04-30 10:13] VITALS: BP 102/57; PULSE 52; RESP 16; O2SAT 99; BMI 20.6
[2024-06-15] VITALS (11 sets, daily range): BP systolic 98–128; BP diastolic 54–73; PULSE 43–61; RESP 12–18; TEMP 36.1–36.8; O2SAT 98–100; BMI 19.9
[2024-06-15] MEDS: Lactated Ringers 1,000 ML 50 ML IVCONT (12:41)
[2024-06-15] MEDS: vancomycin HCL 1,000 MG in 0.9 % Sodium Chloride 250 ML 270 MG IV (12:49)
--- NOTE | 2024-06-15 12:53 | PC.NURSE ---
Patient in preop. Pulse 39-44 on monitor. BP WNL. Patient asymptomatic and states It is usually low but not that low . Per him, pulse is usually low to mid 50's. Last EKG and cardiac notes show SB in high 40's - low 50's. Dr. Cooney from anesthesia made aware. No new orders at this time.
--- NOTE | 2024-06-15 13:15 | MHC.SHP ---
Pre-Procedural Eval Section A - 24 Hr Update-Section A only Date of Service: 06/15/24 The patient is an INPATIENT: No Changes since office visit: Yes Patient answered all questions; No Cold of Flu in the past 2 weeks, No New Medical Problems and No Changes in Medication The patient has been examined within 24 hours of the surgical procedure. The History & Physical has been completed within 30 days and I have reviewed it.: Yes Section B - Complete if H&P > 30 days Chief Complaint: Bilateral inguinal hernia, without obstruction Allergies: Allergies Allergy/AdvReac Type Severity Reaction Status Date / Time amoxicillin [From Augmentin] Allergy Severe Abdominal Verified 06/15/24 12:25 Pain, SOB azithromycin [From Zithromax] Allergy Severe Hives, Verified 06/15/24 12:25 swelling clavulanic acid Allergy Severe Abdominal Verified 06/15/24 12:25 [From Augmentin] Pain, SOB fluoxetine [From Prozac] Allergy Severe panic Verified 06/15/24 12:25 hyoscyamine [From Levbid] Allergy Severe dry mouth Verified 06/15/24 12:25 and unsteady Sulfa (Sulfonamide Allergy Severe throat Verified 06/15/24 12:25 Antibiotics) closes cephalexin [From Keflex] Allergy Mild Abdominal Verified 06/15/24 12:25 Pain erythromycin base Allergy Mild Rash Verified 06/15/24 12:25 mirtazapine Allergy Mild Agitated Verified 06/15/24 12:30 venlafaxine [From Effexor] Allergy Mild Agitated Verified 06/15/24 12:30 milk products Allergy Mild Gastrointestinal Uncoded 06/15/24 12:30 Upset Plan Diagnosis/Plan: Unchanged I have reviewed the history and physical and performed a pertinent physical examination on my patient. No changes have occurred unless specified. Time Spent With Patient Time: Total time managing care of this patient today ____ minutes.
--- NOTE | 2024-06-15 13:29 | P.CONAN_ITS ---
Documented by User: Marilynn Garcia NP 06/04/24 12:58 HPI - Anesthesia Eval Consult details Narrative: 74yo M for Bilateral Repair RECURRENT Hernia Inguinal Reducible with mesh, 06/15/24 Cardiac optimized. 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 OK'd to hold plavix, but remain on asa Follows renal for htn. Kidney function stable per 12/2023 office visit. No recent illness No CP/SOB with ADL's GERD: ppi controls Case reviewed with Dr Cooney Anesthesia Pre-Procedure Meds Is the patient on any of the following meds?: SGLT2 Inhib PMFSH Active Problems Active Problems: All Active Problems Bilateral inguinal hernia (Acute) Past Medical History Medical History History of skin cancer Arthritis Back pain Neck pain Depression Anxiety Numbness and tingling of both feet Polyp, nasal sinus Cardiomyopathy History of palpitations Ascending aortic aneurysm Patent foramen ovale Labile hypertension IBS (irritable bowel syndrome) Hyperlipidemia History of anterior wall myocardial infarction Hiatal hernia GERD (gastroesophageal reflux disease) Coronary artery disease Family History Family history of problems with anesthesia: No Surgical History Surgical History (Updated 06/15/24 @ 12:25 by Nona Loomis RN) History of surgery on arm H/O heart artery stent Hx of angioplasty Hx of cardiac catheterization Hx of colonoscopy Hx of varicose vein ligation and stripping (~1981) Hx of right inguinal hernia repair (~1981) History of Problems with Anesthesia: No Social History Social History Household Members: None Housing: House Are you a primary child care centre manager to a significant other at home: No Do you presently have visiting nurse or other home services: No Alcohol intake: never Patient Tobacco Use Status: Never used Tobacco Use of substances other than those prescribed or required for medical reasons: No Have you been hit, kicked, punched, or otherwise hurt by someone within the past year? If so, by whom?: No Spiritual Healthcare Practices: none Taoist Healthcare Practices: none Cultural Healthcare Practices: none Are you DNR?: No Advance Directives: No Advance Directives Information Provided: Yes Advance Directives on File: No Recently lost weight without trying: Yes How much weight loss: 14-23 pounds Eating poorly because of decreased appetite: Yes Nutrition screen score: 5 Poor oral hygiene: No Meds Allergies Allergy/AdvReac Type Severity Reaction Status Date / Time amoxicillin [From Augmentin] Allergy Severe Abdominal Verified 06/15/24 12:25 Pain, SOB azithromycin [From Zithromax] Allergy Severe Hives, Verified 06/15/24 12:25 swelling clavulanic acid Allergy Severe Abdominal Verified 06/15/24 12:25 [From Augmentin] Pain, SOB fluoxetine [From Prozac] Allergy Severe panic Verified 06/15/24 12:25 hyoscyamine [From Levbid] Allergy Severe dry mouth Verified 06/15/24 12:25 and unsteady Sulfa (Sulfonamide Allergy Severe throat Verified 06/15/24 12:25 Antibiotics) closes cephalexin [From Keflex] Allergy Mild Abdominal Verified 06/15/24 12:25 Pain erythromycin base Allergy Mild Rash Verified 06/15/24 12:25 mirtazapine Allergy Mild Agitated Verified 06/15/24 12:30 venlafaxine [From Effexor] Allergy Mild Agitated Verified 06/15/24 12:30 milk products Allergy Mild Gastrointestinal Uncoded 06/15/24 12:30 Upset Home Medications ?Medication ?Instructions ?Recorded ?Confirmed ?Last Taken ?Type Saccharomyces boulardii 10 billion 10,000 mmu cells PO DAILY 01/21/24 06/15/24 06/14/24 History cell capsule (Resistance Formula Probiotic) aspirin 81 mg capsule 81 mg PO DAILY 01/21/24 06/15/24 06/15/24 History atorvastatin 80 mg tablet 80 mg PO BEDTIME 01/21/24 06/15/24 06/14/24 History clonazepam 0.5 mg tablet 0.5 mg PO BEDTIME PRN Anxiety 01/21/24 06/15/24 Unknown History clopidogrel 75 mg tablet 75 mg PO BEDTIME 01/21/24 06/15/24 06/11/24 History colchicine 0.6 mg tablet 0.6 mg PO BEDTIME 01/21/24 06/15/24 06/14/24 History docusate sodium 100 mg capsule 100 mg PO DAILY PRN Constipation 01/21/24 06/15/24 Unknown History empagliflozin 10 mg tablet 10 mg PO DAILY 10/06/15/24 06/12/24 History (Jardiance) metoprolol succinate 25 mg 25 mg PO DAILY 01/21/24 06/15/24 06/15/24 History tablet,extended release 24 hr pantoprazole 40 mg tablet,delayed 40 mg PO BEDTIME 01/21/24 06/15/24 06/14/24 History release spironolactone 25 mg tablet 12.5 mg PO DAILY 01/21/24 06/15/24 06/15/24 History tadalafil 10 mg tablet 10 mg PO DAILY PRN Sexual Activity 01/21/24 06/15/24 Unknown History valacyclovir 500 mg tablet 250 - 500 mg PO DAILY 01/21/24 06/15/24 06/14/24 History valsartan 40 mg tablet 20 mg PO BEDTIME 03/12/24 06/15/24 06/14/24 History biotin 5 mg capsule 5 mg PO DAILY 04/29/24 06/15/24 Unknown History budesonide 0.5 mg/2 mL suspension 0.5 mg inhalation BID PRN 04/29/24 06/15/24 Unknown History for nebulization (Pulmicort) Shortness Of Breath Or Wheezing finasteride 1 mg tablet 1 mg PO BEDTIME 04/29/24 06/15/24 06/14/24 History nitroglycerin 0.4 mg sublingual 0.4 mg sublingual Q5M PRN Chest 04/29/24 06/15/24 Unknown History tablet Pain vit C 250 mg-vit E 90 mg-zinc 40 1 tab PO BID 04/29/24 06/15/24 06/14/24 History mg-copper 1 [id number] capsule (PreserVision AREDS-2) Exam Height,Weight and Vital Signs: Height 6 ft Weight 68.946 kg Last Vital Signs Pulse 52 04/30/24 10:13 Resp 16 04/30/24 10:13 BP 102/57 L 04/30/24 10:13 Pulse Ox 99 04/30/24 10:13 O2 Del Method Room Air 04/30/24 10:13 Pertinent Lab Results Pertinent Lab Results: CBC 12/2023 and BMP 01/2024 from outside lab WNL Narrative Narrative: ECGECG 12-Lead ? 16:00:29 Please click on pdf link to open report ? Signed By: Leonid JOHNSON, Wilder Pepe ? ECG 12-Lead ? 16:00:29 Ventricular Rate: 61 BPM Atrial Rate: 61 BPM P-R Interval: 178 ms QRS Duration: 96 ms Q-T Interval: 392 ms QTC Calculation(Bazett): 394 ms P [place]: 75 degrees R [place]: -66 degrees T [place]: 56 degrees Normal sinus rhythm Left anterior fascicular block Cannot rule out Anterior infarct (cited on or before 28-JUN-2023) Abnormal ECG When compared with ECG of 01-DEC-2023 19:42, No significant change was found Confirmed ? Signed By: Wilder Jaquez MD Stress Test NM Myocard Perf SPECT Multi ? 12:52:00 Summary 1. Myocardial perfusion imaging is abnormal after exercise stress test at high functional capacity. There is a moderate sized, moderate to severe, partially reversible perfusion defect in the inferior and inferoseptal wall from base to apex. There is also a partially reversible, large, moderate severity perfusion defect in the anterior and anteroseptal wall from mid ventricle to apex. Findings are concerning for mixed myocardial scar and ischemia. 2. LV function is abnormal with an E.F. of 43% at rest and 49% with stress, with apical akinesis and hypokinesis of the mid to apical inferior and anterior segment. 3. EKG portion of the stress test is reported separately. This procedure is not being performed on this patient for preoperative evaluation for low-risk surgery within 30 days. Results were sent to Dr. Osiris Sims via [employer] message at 2:03 pm on 12/03/2023 with understanding acknowledged. Signatures _ _ ? Signed By: Francis Jacobs MD No qualifying data available. EchoEchocardiogram - Complete ? 10:06:26 Summary The left ventricular size is normal. Left ventricular wall thickness is normal. Apical images are off axis, echocontrast is given though apex is not well opacified. Function appears moderately to severely reduced. Visually EF 25-30%. The apical lateral, mid/distal anterior, anteroseptal vasquez appear akinetic. The apex is not well visualized, appears dyskinetic. Cannot evaluate for LV thrombus. Grade I, mild diastolic dysfunction with impaired LV relaxation. Trileaflet aortic valve. The aortic valve appears mildly thickened. There is no aortic stenosis. There is trace aortic regurgitation. The right ventricular size and function appears grossly normal. There is no pericardial effusion. Comparison Comparison is made to the study of November 16, 2010. Images not available. Signature ? Signed By: Celeste Pike MD Cardiac Cath ProcedureCardiac Cath Procedure ? 08:19:00 Conclusions Diagnostic Summary Widely patent LAD stents Otherwise no obstructive coronary artery disease Normal LV end-diastolic pressure No significant gradient between the left ventricle and aorta upon pullback Right radial artery hemostatic with compressive device Diagnostic Recommendations Patent prior LAD stents and otherwise no significant coronary disease was identified. Continue GDMT for established CAD and heart failure with reduced ejection fraction ACC Diagnostic Recommendations: Medical therapy and/or counseling. Complications:None. Signatures ? Signed By: Rodrigo JOHNSON, Lincoln Rubi Airway Mallampati Class: I TM Dist: >3cm Neck ROM: Limited (OA) Loose/Missing/Broken Teeth: Yes (broken left upper molar, permanent bridge right lower, crowns throughout) Assessment and Plan Assessment Anesthesia Assessment: Anesthesia Plan Discussed and PAT Visit Final Anesthetic Review Family History of Problems with Anesthesia: No History of Problems with Anesthesia: No Documented by User: Sonia Cooney DO 06/15/24 13:29 HPI - Anesthesia Eval Consult details Narrative: 74yo M for Bilateral Repair RECURRENT Hernia Inguinal Reducible with mesh, 06/15/24 Cardiac optimized. 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 OK'd to hold plavix, but remain on asa Follows renal for htn. Kidney function stable per 12/2023 office visit. No recent illness No CP/SOB with ADL's GERD: ppi controls Patient reports having another echo done 2 weeks ago in early May. EF now back up to 45%. He is able to climb 3-4 flights of stairs without issue. Anesthesia Pre-Procedure Meds Is the patient on any of the following meds?: SGLT2 Inhib PMFSH Past Medical History Medical History History of skin cancer Arthritis Back pain Neck pain Depression Anxiety Numbness and tingling of both feet Polyp, nasal sinus Cardiomyopathy History of palpitations Ascending aortic aneurysm Patent foramen ovale Labile hypertension IBS (irritable bowel syndrome) Hyperlipidemia History of anterior wall myocardial infarction Hiatal hernia GERD (gastroesophageal reflux disease) Coronary artery disease Family History Family history of problems with anesthesia: No Surgical History Surgical History (Updated 06/15/24 @ 12:25 by Nona Loomis RN) History of surgery on arm H/O heart artery stent Hx of angioplasty Hx of cardiac catheterization Hx of colonoscopy Hx of varicose vein ligation and stripping (~1981) Hx of right inguinal hernia repair (~1981) History of Problems with Anesthesia: No Social History Social History Household Members: None Housing: House Are you a primary child care centre manager to a significant other at home: No Do you presently have visiting nurse or other home services: No Alcohol intake: never Patient Tobacco Use Status: Never used Tobacco Use of substances other than those prescribed or required for medical reasons: No Have you been hit, kicked, punched, or otherwise hurt by someone within the past year? If so, by whom?: No Spiritual Healthcare Practices: none Taoist Healthcare Practices: none Cultural Healthcare Practices: none Are you DNR?: No Advance Directives: No Advance Directives Information Provided: Yes Advance Directives on File: No Recently lost weight without trying: Yes How much weight loss: 14-23 pounds Eating poorly because of decreased appetite: Yes Nutrition screen score: 5 Poor oral hygiene: No Meds Allergies Allergy/AdvReac Type Severity Reaction Status Date / Time amoxicillin [From Augmentin] Allergy Severe Abdominal Verified 06/15/24 12:25 Pain, SOB azithromycin [From Zithromax] Allergy Severe Hives, Verified 06/15/24 12:25 swelling clavulanic acid Allergy Severe Abdominal Verified 06/15/24 12:25 [From Augmentin] Pain, SOB fluoxetine [From Prozac] Allergy Severe panic Verified 06/15/24 12:25 hyoscyamine [From Levbid] Allergy Severe dry mouth Verified 06/15/24 12:25 and unsteady Sulfa (Sulfonamide Allergy Severe throat Verified 06/15/24 12:25 Antibiotics) closes cephalexin [From Keflex] Allergy Mild Abdominal Verified 06/15/24 12:25 Pain erythromycin base Allergy Mild Rash Verified 06/15/24 12:25 mirtazapine Allergy Mild Agitated Verified 06/15/24 12:30 venlafaxine [From Effexor] Allergy Mild Agitated Verified 06/15/24 12:30 milk products Allergy Mild Gastrointestinal Uncoded 06/15/24 12:30 Upset Home Medications ?Medication ?Instructions ?Recorded ?Confirmed ?Last Taken ?Type Saccharomyces boulardii 10 billion 10,000 mmu cells PO DAILY 01/21/24 06/15/24 06/14/24 History cell capsule (Resistance Formula Probiotic) aspirin 81 mg capsule 81 mg PO DAILY 01/21/24 06/15/24 06/15/24 History atorvastatin 80 mg tablet 80 mg PO BEDTIME 01/21/24 06/15/24 06/14/24 History clonazepam 0.5 mg tablet 0.5 mg PO BEDTIME PRN Anxiety 01/21/24 06/15/24 Unknown History clopidogrel 75 mg tablet 75 mg PO BEDTIME 01/21/24 06/15/24 06/11/24 History colchicine 0.6 mg tablet 0.6 mg PO BEDTIME 01/21/24 06/15/24 06/14/24 History docusate sodium 100 mg capsule 100 mg PO DAILY PRN Constipation 01/21/24 06/15/24 Unknown History empagliflozin 10 mg tablet 10 mg PO DAILY 01/21/24 06/15/24 06/12/24 History (Jardiance) metoprolol succinate 25 mg 25 mg PO DAILY 01/21/24 06/15/24 06/15/24 History tablet,extended release 24 hr pantoprazole 40 mg tablet,delayed 40 mg PO BEDTIME 01/21/24 06/15/24 06/14/24 History release spironolactone 25 mg tablet 12.5 mg PO DAILY 01/21/24 06/15/24 06/15/24 History tadalafil 10 mg tablet 10 mg PO DAILY PRN Sexual Activity 01/21/24 06/15/24 Unknown History valacyclovir 500 mg tablet 250 - 500 mg PO DAILY 01/21/24 06/15/24 06/14/24 History valsartan 40 mg tablet 20 mg PO BEDTIME 03/12/24 06/15/24 06/14/24 History biotin 5 mg capsule 5 mg PO DAILY 04/29/24 06/15/24 Unknown History budesonide 0.5 mg/2 mL suspension 0.5 mg inhalation BID PRN 04/29/24 06/15/24 Unknown History for nebulization (Pulmicort) Shortness Of Breath Or Wheezing finasteride 1 mg tablet 1 mg PO BEDTIME 04/29/24 06/15/24 06/14/24 History nitroglycerin 0.4 mg sublingual 0.4 mg sublingual Q5M PRN Chest 04/29/24 06/15/24 Unknown History tablet Pain vit C 250 mg-vit E 90 mg-zinc 40 1 tab PO BID 04/29/24 06/15/24 06/14/24 History mg-copper 1 [id number] capsule (PreserVision AREDS-2) Exam Exam Date and Time: 06/15/24 1325 Height,Weight and Vital Signs: Height 6 ft Weight 68.946 kg Last Vital Signs Pulse 52 04/30/24 10:13 Resp 16 04/30/24 10:13 BP 102/57 L 04/30/24 10:13 Pulse Ox 99 04/30/24 10:13 O2 Del Method Room Air 04/30/24 10:13 Vital Signs Pulse Rate 52 04/30/24 10:13 Respiratory Rate 16 04/30/24 10:13 Blood Pressure 102/57 L 04/30/24 10:13 Pulse Oximetry 99 04/30/24 10:13 Oxygen Delivery Method Room Air 04/30/24 10:13 Temperature 98.2 F 06/15/24 12:31 Pulse Rate 43 L 06/15/24 12:31 Respiratory Rate 16 06/15/24 12:31 Blood Pressure 120/69 06/15/24 12:31 Pulse Oximetry 98 06/15/24 12:31 Oxygen Delivery Method Room Air 06/15/24 12:31 Airway Mallampati Class: I TM Dist: >3cm Neck ROM: Limited Loose/Missing/Broken Teeth: Yes (broken left upper molar, permanent bridge right lower, crowns throughout) Heart: S1S2 Lungs: CTAB Assessment and Plan Assessment Anesthesia Assessment: Anesthesia Plan Discussed and Chart Reviewed Final Anesthetic Review Family History of Problems with Anesthesia: No History of Problems with Anesthesia: No NPO: Yes ASA Class: III Final Preanesthetic Review: No Changes in Pt Med Stat, Meds/Allgs Chart Reviewed, Consent Obtained/Reviewed and Anes Risks/Benef Reviewed Patient Risk: Intermediate Procedure Risk: Low Anesthetic Plan Anesthetic Plan: GA and Agree w/ Assess. and Plan Disposition: Standard PACU
--- NOTE | 2024-06-15 14:25 | P.OP_ITS ---
Operative Note Operative Note Date of Service: 06/15/24 Narrative: Preoperative diagnosis: Recurrent left inguinal hernia Postoperative diagnosis: Same Procedure: Repair of recurrent left inguinal hernia with mesh Surgeon: Zurdo Lindsay MD [employer]ident Responder: Kristen Gonzalez PA-C; KALLI Han Anesthesia: General LMA Indications for procedure: 74-year-old male patient presenting with a previous history of a left inguinal hernia repair now with a large lump which increases with lifting and reduces with light pressure. Operative findings: Recurrent left inguinal hernia, indirect, reducible Specimen: Lipoma of the cord, left inguinal hernia sac Estimated blood loss: 2 mL Complications: None Procedure details: Patient was brought to the OR and placed in a supine position. After administering general anesthesia the patient's abdomen was prepped with ChloraPrep and draped in a sterile fashion. A surgical time-out was called the consent confirmed. Patient received preoperative antibiotics and Venodyne boots were in place. Local anesthesia was infiltrated over the left inguinal ligament. Incision was then made with a scalpel carried out through subcutaneous tissue, past Calderon's fascia and up to the external oblique aponeurosis. This was then incised scalpel widened with the Metzenbaum scissors. The spermatic cord was then dissected free from the surrounding inguinal canal using blunt dissection. This was then retracted using a Yadiel drain. The floor of the inguinal canal was found to be weak. Fibers of the cremaster muscle were and a moderate size lipoma of the cord was dissected down to the internal ring. A hernia sac was also noted to be adjacent to this lipoma. The hernia sac was dissected to the internal ring, the sac was opened and its contents reduced. The sac was then ligated at the base with a 0 Polysorb suture. The sac was then excised sent to pathology for further examination. Additionally the lipoma was excised using electrocautery and sent to pathology as specimen as well. Attention was then directed to the floor of the inguinal canal. Fibers of the internal oblique and transversalis were opened using electrocautery. The preperitoneal space was then entered. This was then widened with an open Ray-Arabella sponge. A large PHS mesh was then obtained. The circular underlay was then deployed within the preperitoneal space. The overlay was secured to the pubic tubercle, conjoined tendon, and shelving edge of the inguinal ligament using a 0 Polysorb suture. A slit was made in the mesh in the mesh wrapped around the spermatic cord at the internal ring. This was done using 0 Polysorb suture as well. The remainder of the mesh was placed below the external oblique aponeurosis laterally. The wounds were then irrigated with saline solution and suctioned dry. External oblique aponeurosis was then closed using a running 2-0 Polysorb suture. Approximately 5 mL of Zenrelef was then instilled below the external oblique aponeurosis for postoperative pain control. Calderon's fascia and dermis were then reapproximated using interrupted 3-0 Polysorb sutures. Skin was closed using a running subcuticular 4-0 Polysorb suture. Sterile drapes consisting of Steri-Strips, 4 x 4 gauze and Tegaderm were then applied. The patient tolerated the procedure well. Sponge, instrument, and needle counts were reported as correct. The patient was transferred to PACU in stable condition.
[2024-06-15] MEDS: Haloperidol Lactate 5 MG/ML VIAL IVPUSH (15:20)
--- NOTE | 2024-06-15 16:52 | PHA.MEDREC ---
Pharmacy Consult ? Medication Reconciliation Pharmacy has reviewed the medication reconciliation done by nursing. Spoke to patient to confirm med list. Patient states he is not taking Pulmicort inhaler, Docusate sod 100 mg, and oxycodone 5 mg. Patient states he fills all his medications [facility]. Called [facility] and confirmed all of patients medications pharmacy.
--- NOTE | 2024-06-15 16:56 | PHA.MEDREC ---
Addendum entered by Gus Kelley RPh 06/15/24 17:35: Reviewed by [facility] Original Note: Pharmacy Consult ? Medication Reconciliation Pharmacy has reviewed the medication reconciliation done by nursing. Spoke to patient to confirm med list. Patient states he is not taking Pulmicort inhaler, Docusate sod 100 mg, and oxycodone 5 mg. Patient states he fills all his medications [facility]. Called [facility] and confirmed all of patients medications pharmacy. Patient stated he was instructed to hold Plavix 75 mg 5 days prior to surgery and Jardiance 10 mg 3 days prior to surgery. .
[2024-06-15] MEDS: oxyCODONE HCl Immed Release 5 MG TABLET PO (17:26)
[2024-06-15] MEDS: Colchicine 0.6 MG TABLET PO (20:13)
[2024-06-15] MEDS: Atorvastatin Calcium 80 MG TABLET PO (20:13)
[2024-06-15] MEDS: Valsartan 40 MG TABLET 20 MG PO (20:13)
[2024-06-15] MEDS: HYDROmorphone HCl 0.5 MG/0.5 ML SYRINGE IVPUSH (20:13)
[2024-06-15] MEDS: Clopidogrel Bisulfate 75 MG TABLET PO (20:13)
--- NOTE | 2024-06-16 03:11 | PC.NURSE ---
three due to void post op complete
[2024-06-16 03:39] VITALS: BP 100/55; PULSE 52; RESP 18; TEMP 36.8; O2SAT 98
[2024-06-16] MEDS: Pantoprazole Sodium 20 MG TABLET.DR PO (06:31)
[2024-06-16 07:39] VITALS: BP 96/54; RESP 16; TEMP 36.4; O2SAT 99
[2024-06-16] MEDS: Aspirin Enteric Coated 81 MG TABLET.DR PO (08:00)
[2024-06-16] MEDS: Spironolactone 25 MG TABLET 12.5 MG PO (08:01)
[2024-06-16] MEDS: Empagliflozin 10 MG TABLET PO (08:01)
--- NOTE | 2024-06-16 08:02 | PM.PNGS ---
Subjective Subjective Date of Service: 06/16/24 Interval history: Patient feels well. Does report some incisional pain but otherwise had a good night. Physical Exam Vital Signs: Vital Signs: Last Vital Signs Temp 97.5 F 06/16/24 07:39 Pulse 52 06/16/24 03:39 Resp 16 06/16/24 07:39 BP 96/54 L 06/16/24 07:39 Pulse Ox 99 06/16/24 07:39 O2 Del Method Room Air 06/16/24 07:39 O2 Flow Rate 98 06/15/24 19:54 BMI result Body Mass Index 19.9 Const: General: comfortable Nutritional Appearance: well nourished and thin Orientation/consciousness: patient oriented x3 Resp: Effort & Inspection: normal respiratory effort GI: Other: Soft, nondistended, nontender, incision in the left groin clean, dry, and intact. Neuro: General: patient oriented x3 Extrem: General: No edema Objective Data Active Medications Aspirin (Aspirin Enteric Coated 81 Mg Tablet.) 81 mg PO DAILY [facility] Atorvastatin Calcium (Atorvastatin Calcium 80 Mg Tablet) 80 mg PO BEDTIME [facility] Last Admin: 06/15/24 20:13 Dose: 80 mg Documented By: BRIAN Clonazepam (Clonazepam 0.5 Mg Tablet) 0.5 mg PO BEDTIME PRN PRN Reason: Anxiety Clopidogrel Bisulfate (Clopidogrel Bisulfate 75 Mg Tablet) 75 mg PO BEDTIME [facility] Last Admin: 06/15/24 20:13 Dose: 75 mg Documented By: BRIAN Colchicine (Colchicine 0.6 Mg Tablet) 0.6 mg PO BEDTIME [facility] Last Admin: 06/15/24 20:13 Dose: 0.6 mg Documented By: BRIAN Empagliflozin (Empagliflozin 10 Mg Tablet) 10 mg PO DAILY [facility] Hydromorphone HCl (Hydromorphone Hcl 0.5 Mg/0.5 Ml Syringe) 0.5 mg IVPUSH Q3H PRN; Protocol PRN Reason: Pain, Severe (Pain Scale 7-10) Last Admin: 06/15/24 20:13 Dose: 0.5 mg Documented By: BRIAN Lactated Ringer's (Lr) 1,000 mls @ 50 mls/hr IVCONT .Q20H [facility] Last Admin: 06/15/24 12:41 Dose: 50 mls/hr Documented By: MARNIE Metoprolol Succinate (Metoprolol Succinate Er 25 Mg Tab.Er.24h) 25 mg PO DAILY [facility]; Protocol Naloxone HCl (Naloxone Hcl 0.4 Mg/Ml Vial) 0.04 mg IVPUSH Q5M PRN PRN Reason: Excessive sedation or RR < 8 Nitroglycerin (Nitroglycerin 0.4 Mg Tab.Subl) 0.4 mg SUBLINGUAL Q5M PRN PRN Reason: Chest Pain Non-Formulary Medication (Finasteride) 1 mg PO BEDTIME BETTYE Ondansetron HCl (Ondansetron Hcl 4 Mg/2 Ml Vial) 4 mg IVPUSH QID PRN PRN Reason: Nausea Oxycodone HCl (Oxycodone Hcl Immed Release 5 Mg Tablet) 5 mg PO Q6H PRN PRN Reason: Pain, Moderate(Pain Scale 4-6) Last Admin: 06/15/24 17:26 Dose: 5 mg Documented By: LISSY Pantoprazole Sodium (Pantoprazole Sodium 20 Mg Tablet.) 20 mg PO DAILY@0630 [facility] Last Admin: 06/16/24 06:31 Dose: 20 mg Documented By: MANINDER Spironolactone (Spironolactone 25 Mg Tablet) 12.5 mg PO DAILY [facility]; Protocol Valsartan (Valsartan 40 Mg Tablet) 20 mg PO BEDTIME [facility]; Protocol Last Admin: 06/15/24 20:13 Dose: 20 mg Documented By: BRIAN Procedures Date of Service Date of Service: 06/16/24 Progress Note: A&P Assessment and plan (1) Left inguinal hernia: Status: Acute Plan 74-year-old male status post repair of a left inguinal hernia with mesh. He tolerated the procedure well is ready for discharge to home today. He will follow up in the office in 1 week. He should avoid lifting greater than 10 lb for the next month. Time Spent With Patient Time: Total time managing care of this patient today ____ minutes. Quality Stroke Does the patient have a stroke diagnosis?: No VTE Prior VTE?: No VTE Risk Level:: Surgical - moderate VTE Device Contraindication: N/A - Device Ordered VTE Drug Contraindication: Treatment Not Indicated
[2024-06-16] MEDS: oxyCODONE HCl Immed Release 5 MG TABLET PO (08:19)
--- NOTE | 2024-06-16 08:26 | PC.NURSE ---
Patient assessed by AGNIESZKA Noland this am,has no complaints awating discharge
[2024-06-16 08:33] VITALS: PULSE 52
--- NOTE | 2024-06-16 08:44 | PC.NURSE ---
Discharge instructions explained to patient by AGNIESZKA Grove,BP addressed by AGNIESZKA Grove with Dr. Lindsay
--- NOTE | 2024-06-16 09:54 | MHC.CM.PN ---
IMM 06/16/24 Patient s/p hernia repair Lives alone independent with all functional mobility. DP home self-care, Patient arranged for transportation home.
== END 2024-06-16 08:39 | disposition home or self-care (01) ==
LOC: HO.SSS 13:16 → HO.S3 16:11
PROVIDERS: PCP Internal Medicine; Visit Provider Surgery
PROC: (CPT 49520; principal; 2024-06-15 13:00)
DX: K40.91 Unilateral inguinal hernia, without obstruction or gangrene, recurrent (principal); D17.6 Benign lipomatous neoplasm of spermatic cord; K44.9 Diaphragmatic hernia without obstruction or gangrene; I25.10 Atherosclerotic heart disease of native coronary artery without angina pectoris; Z95.5 Presence of coronary angioplasty implant and graft; I25.2 Old myocardial infarction; Q21.12 Patent foramen ovale; E78.5 Hyperlipidemia, unspecified; R09.89 Other specified symptoms and signs involving the circulatory and respiratory systems; K58.9 Irritable bowel syndrome, unspecified; Z91.011 Allergy to milk products; Z88.1 Allergy status to other antibiotic agents; Z88.2 Allergy status to sulfonamides; Z88.8 Allergy status to other drugs, medicaments and biological substances; Z98.890 Other specified postprocedural states
CPT/HCPCS: 49520; 88302; 88304; C1781; C9088; J0131; J1100; J1171; J1596; J1630; J2003; J2405; J2795; J3010; J3370

== ENCOUNTER → 2024-06-15 11:20 | Outpatient (BNV) | payer MEDICARE, SELFPAY | PROVIDERS: PCP Internal Medicine; Visit Provider Surgery | DX: K40.90 Unilateral inguinal hernia, without obstruction or gangrene, not specified as recurrent (principal) | CPT/HCPCS: 49520; 99024 ==

== ENCOUNTER 2024-06-19 11:01 | Outpatient (AMB) | payer MEDICARE, SELFPAY ==
--- NOTE | 2024-06-19 11:21 | MHC.OFFVIS ---
Intake Visit Reasons: bilateral inguinal hernia w/mesh/Pain Intake Note: Pt states, The pain woke me up and I thing the swelling has increased. I was just concerned with the weekend coming. C/o pain, swelling and bruising of scrotum Wind Commissioning Technician Required: No Allergies amoxicillin [From Augmentin] Allergy (Severe, Verified 06/15/24 12:25) Abdominal Pain, SOB azithromycin [From Zithromax] Allergy (Severe, Verified 06/15/24 12:25) Hives, swelling clavulanic acid [From Augmentin] Allergy (Severe, Verified 06/15/24 12:25) Abdominal Pain, SOB fluoxetine [From Prozac] Allergy (Severe, Verified 06/15/24 12:25) panic hyoscyamine [From Levbid] Allergy (Severe, Verified 06/15/24 12:25) dry mouth and unsteady Sulfa (Sulfonamide Antibiotics) Allergy (Severe, Verified 06/15/24 12:25) throat closes cephalexin [From Keflex] Allergy (Mild, Verified 06/15/24 12:25) Abdominal Pain erythromycin base Allergy (Mild, Verified 06/15/24 12:25) Rash mirtazapine Allergy (Mild, Verified 06/15/24 12:30) Agitated venlafaxine [From Effexor] Allergy (Mild, Verified 06/15/24 12:30) Agitated milk products Allergy (Mild, Uncoded 06/15/24 12:30) Gastrointestinal Upset HPI Comments Details: 74-year-old male status post repair of a left inguinal hernia with mesh. He called this morning because of pain located in the left testicle with discoloration. He was concerned about bleeding into the testicle. He was ambulating well and denies any fever or chills. He denies nausea or vomiting. [facility] Medical History (Updated 06/16/24 @ 08:03 by Zurdo Lindsay MD) History of skin cancer Arthritis Back pain Neck pain Depression Anxiety Numbness and tingling of both feet Polyp, nasal sinus Cardiomyopathy History of palpitations Ascending aortic aneurysm Patent foramen ovale Labile hypertension IBS (irritable bowel syndrome) Hyperlipidemia History of anterior wall myocardial infarction Hiatal hernia GERD (gastroesophageal reflux disease) Coronary artery disease Surgical History (Updated 06/15/24 @ 12:25 by Nona Loomis RN) History of surgery on arm H/O heart artery stent Hx of angioplasty Hx of cardiac catheterization Hx of colonoscopy Hx of varicose vein ligation and stripping (~1981) Hx of right inguinal hernia repair (~1981) Social History Household Members: None Housing: House Are you a primary manager respiratory care to a significant other at home: No Do you presently have visiting nurse or other home services: No 75 years or older and lives alone: No Alcohol intake: never Comment: COUNTS CORRECT Patient Tobacco Use Status: Never used Tobacco service: No Physical Exam Const General: no acute distress Nutritional Appearance: thin Orientation/consciousness: patient oriented x3 Resp Effort & Inspection: normal respiratory effort GI Other: Incision in the left inguinal region is clean and intact with intact Steri-Strips. No hematoma or seroma is appreciated. Scrotum has slight ecchymosis but no palpable hematoma or seroma. There is no evidence of wound infection or fluid accumulation. Neuro General: patient oriented x3 Assessment & Plan Assessment & Plan (1) Left inguinal hernia: Code(s): K40.90 - Unilateral inguinal hernia, without obstruction or gangrene, not specified as recurrent Category: Medical Plan Patient returns 4 days following repair of a left inguinal hernia with mesh. His wounds are clean and intact. There is slight ecchymosis which is normal following hernia surgery. A I recommended he continue wearing tight underwear to maintain compression on the scrotum. He should also apply warm moist heat for symptomatic relief. He will return in 1 week for wound check. Coding Level of Care Code Global (33041) Diagnoses Left inguinal hernia K40.90
== END 2024-06-19 11:26 | disposition home or self-care (01) ==
PROVIDERS: PCP Internal Medicine; Visit Provider Surgery
DX: K40.90 Unilateral inguinal hernia, without obstruction or gangrene, not specified as recurrent (principal)
CPT/HCPCS: 99024

== ENCOUNTER → 2024-06-19 11:01 | Outpatient (BNVA) | payer MEDICARE, SELFPAY | PROVIDERS: PCP Internal Medicine; Visit Provider Surgery | DX: Z48.815 Encounter for surgical aftercare following surgery on the digestive system (principal); Z98.890 Other specified postprocedural states | CPT/HCPCS: 99212 ==

== ENCOUNTER 2024-06-26 10:55 | Outpatient (AMB) | payer MEDICARE, SELFPAY ==
--- NOTE | 2024-06-26 10:57 | MHC.OFFVIS ---
Vital Signs 06/26/24 11:02 Height 6 ft Weight 147 lb BMI 19.9 BP 111/64 Blood Pressure Location Lt brachial Position Sitting Pulse 58 Intake Visit Reasons: S/P bilateral inguinal hernia w/mesh Intake Note: Patient is seen in office for post op assessment post Repair of recurrent left inguinal hernia with mesh. Pt c/o: admits to pain in the left testicle, some swelling surgery:06/15/24 Fundraising Director Required: No Accompanied by: Self / Same As Patient Allergies amoxicillin [From Augmentin] Allergy (Severe, Verified 06/26/24 11:02) Abdominal Pain, SOB azithromycin [From Zithromax] Allergy (Severe, Verified 06/26/24 11:02) Hives, swelling clavulanic acid [From Augmentin] Allergy (Severe, Verified 06/26/24 11:02) Abdominal Pain, SOB fluoxetine [From Prozac] Allergy (Severe, Verified 06/26/24 11:02) panic hyoscyamine [From Levbid] Allergy (Severe, Verified 06/26/24 11:02) dry mouth and unsteady Sulfa (Sulfonamide Antibiotics) Allergy (Severe, Verified 06/26/24 11:02) throat closes cephalexin [From Keflex] Allergy (Mild, Verified 06/26/24 11:02) Abdominal Pain erythromycin base Allergy (Mild, Verified 06/26/24 11:02) Rash mirtazapine Allergy (Mild, Verified 06/26/24 11:02) Agitated venlafaxine [From Effexor] Allergy (Mild, Verified 06/26/24 11:02) Agitated milk products Allergy (Mild, Uncoded 06/26/24 11:02) Gastrointestinal Upset Medication List - Last Reconciled 06/26/24 by Zurdo Lindsay MD aspirin 81 mg PO DAILY atorvastatin 80 mg PO BEDTIME biotin 5 mg PO DAILY clonazepam 0.5 mg PO BEDTIME PRN clopidogrel 75 mg PO BEDTIME colchicine 0.6 mg PO BEDTIME empagliflozin (Jardiance) 10 mg PO DAILY finasteride 1 mg PO BEDTIME ketoconazole 2% 1 appl topical DAILY metoprolol succinate ER 25 mg PO DAILY nitroglycerin 0.4 mg sublingual Q5M PRN pantoprazole 40 mg PO BEDTIME Saccharomyces boulardii (Resistance Formula Probiotic) 10,000 mmu cells PO DAILY sacubitril-valsartan 24-26 mg (Entresto) 1 tab PO BID spironolactone 12.5 mg PO DAILY tadalafil 10 mg PO DAILY PRN valacyclovir 250 - 500 mg PO DAILY valsartan 20 mg PO BEDTIME vit C,J-Sd-boxge-lutein-zeaxan 250-90-40-1 mg (PreserVision AREDS-2) 1 tab PO BID HPI Comments Details: Patient returns 2 weeks following repair of a left inguinal hernia with mesh. He still has some soreness in the testicle along the spermatic cord. The bruising comes and goes. He denies nausea or vomiting. His bowels are regular. He denies fever or chills. [facility] Medical History History of skin cancer Arthritis Back pain Neck pain Depression Anxiety Numbness and tingling of both feet Polyp, nasal sinus Cardiomyopathy History of palpitations Ascending aortic aneurysm Patent foramen ovale Labile hypertension IBS (irritable bowel syndrome) Hyperlipidemia History of anterior wall myocardial infarction Hiatal hernia GERD (gastroesophageal reflux disease) Coronary artery disease Surgical History History of left inguinal hernia repair (06/15/24) History of surgery on arm H/O heart artery stent Hx of angioplasty Hx of cardiac catheterization Hx of colonoscopy Hx of varicose vein ligation and stripping (~1981) Hx of right inguinal hernia repair (~1981) Social History Household Members: None Housing: House Are you a primary md do resident urgent care to a significant other at home: No Do you presently have visiting nurse or other home services: No 75 years or older and lives alone: No Alcohol intake: never Comment: COUNTS CORRECT Patient Tobacco Use Status: Never used Tobacco service: No Physical Exam Vital Signs: Last Vital Signs Pulse 58 06/26/24 11:02 BP 111/64 06/26/24 11:02 BMI result Body Mass Index 19.9 Const General: comfortable Nutritional Appearance: well nourished Orientation/consciousness: patient oriented x3 Resp Effort & Inspection: normal respiratory effort GI Other: Well-healed incision in the left groin with a normal healing ridge. No hernia noted with Valsalva maneuvers. Tenderness along the spermatic cord. No evidence of infection, hematoma or seroma. Other: No evidence of scrotal edema/hematoma Neuro General: patient oriented x3 Extrem Other: No edema. Minimal ecchymosis in the left upper inner thigh Assessment & Plan Assessment & Plan (1) Left inguinal hernia: Code(s): K40.90 - Unilateral inguinal hernia, without obstruction or gangrene, not specified as recurrent Category: Medical Plan 74-year-old male returning 2 weeks following repair of a left inguinal hernia with mesh. He still has some soreness in the spermatic cord but there is no evidence of wound infection, hematoma or seroma. Hernias noted with Valsalva maneuvers. Coding Level of Care Code Global (29358) Diagnoses Left inguinal hernia K40.90
[2024-06-26 11:02] VITALS: BP 111/64; PULSE 58; BMI 19.9
== END 2024-06-26 11:15 | disposition home or self-care (01) ==
LOC: HO.HGS 10:56
PROVIDERS: PCP Internal Medicine; Visit Provider Surgery
DX: K40.90 Unilateral inguinal hernia, without obstruction or gangrene, not specified as recurrent (principal)
CPT/HCPCS: 99024

== ENCOUNTER → 2024-06-26 10:55 | Outpatient (BNVA) | payer MEDICARE, SELFPAY | PROVIDERS: PCP Internal Medicine; Visit Provider Surgery | DX: Z48.815 Encounter for surgical aftercare following surgery on the digestive system (principal); Z98.890 Other specified postprocedural states | CPT/HCPCS: 99212 ==

== ENCOUNTER 2024-07-16 15:02 | Outpatient (AMB) | payer MEDICARE, SELFPAY ==
--- NOTE | 2024-07-16 15:15 | MHC.OFFVIS ---
Vital Signs 07/16/24 15:16 Height 6 ft Weight 147 lb 0.773 oz BMI 19.9 Intake Visit Reasons: wound check, post bilateral hernia Intake Note: Patient is seen in office for wound check, post bilateral hernia. Pt c/o: continued pain when going up stairs Vision Rehabilitation Therapist Required: No Accompanied by: Self / Same As Patient Allergies amoxicillin [From Augmentin] Allergy (Severe, Verified 07/16/24 15:15) Abdominal Pain, SOB azithromycin [From Zithromax] Allergy (Severe, Verified 07/16/24 15:15) Hives, swelling clavulanic acid [From Augmentin] Allergy (Severe, Verified 07/16/24 15:15) Abdominal Pain, SOB fluoxetine [From Prozac] Allergy (Severe, Verified 07/16/24 15:15) panic hyoscyamine [From Levbid] Allergy (Severe, Verified 07/16/24 15:15) dry mouth and unsteady Sulfa (Sulfonamide Antibiotics) Allergy (Severe, Verified 07/16/24 15:15) throat closes cephalexin [From Keflex] Allergy (Mild, Verified 07/16/24 15:15) Abdominal Pain erythromycin base Allergy (Mild, Verified 07/16/24 15:15) Rash mirtazapine Allergy (Mild, Verified 07/16/24 15:15) Agitated venlafaxine [From Effexor] Allergy (Mild, Verified 07/16/24 15:15) Agitated milk products Allergy (Mild, Uncoded 07/16/24 15:15) Gastrointestinal Upset Medication List - Last Reconciled 07/16/24 by Zurdo Lindsay MD aspirin 81 mg PO DAILY atorvastatin 80 mg PO BEDTIME biotin 5 mg PO DAILY clonazepam 0.5 mg PO BEDTIME PRN clopidogrel 75 mg PO BEDTIME colchicine 0.6 mg PO BEDTIME empagliflozin (Jardiance) 10 mg PO DAILY finasteride 1 mg PO BEDTIME ketoconazole 2% 1 appl topical DAILY metoprolol succinate ER 25 mg PO DAILY nitroglycerin 0.4 mg sublingual Q5M PRN pantoprazole 40 mg PO BEDTIME Saccharomyces boulardii (Resistance Formula Probiotic) 10,000 mmu cells PO DAILY sacubitril-valsartan 24-26 mg (Entresto) 1 tab PO BID spironolactone 12.5 mg PO DAILY tadalafil 10 mg PO DAILY PRN valacyclovir 250 - 500 mg PO DAILY valsartan 20 mg PO BEDTIME vit C,A-Mk-hokof-lutein-zeaxan 250-90-40-1 mg (PreserVision AREDS-2) 1 tab PO BID HPI Comments Details: 74-year-old male patient status post repair of a recurrent left inguinal hernia with mesh performed on 06/15/2024. He returns today after developing some sharp pains in the left groin while sitting at a restaurant approximately 2 weeks ago. The pain subsequently subsided but he still has occasional discomfort in the left testicle and left inner thigh. He denies any palpable lump. Did note a small suture from the medial incision that he was concerned about as well. [facility] Medical History History of skin cancer Arthritis Back pain Neck pain Depression Anxiety Numbness and tingling of both feet Polyp, nasal sinus Cardiomyopathy History of palpitations Ascending aortic aneurysm Patent foramen ovale Labile hypertension IBS (irritable bowel syndrome) Hyperlipidemia History of anterior wall myocardial infarction Hiatal hernia GERD (gastroesophageal reflux disease) Coronary artery disease Surgical History History of left inguinal hernia repair (06/15/24) History of surgery on arm H/O heart artery stent Hx of angioplasty Hx of cardiac catheterization Hx of colonoscopy Hx of varicose vein ligation and stripping (~1981) Hx of right inguinal hernia repair (~1981) Social History Household Members: None Housing: House Are you a primary transitions rn care coordinator to a significant other at home: No Do you presently have visiting nurse or other home services: No 75 years or older and lives alone: No Alcohol intake: never Comment: COUNTS CORRECT Patient Tobacco Use Status: Never used Tobacco service: No Physical Exam Vital Signs: BMI result Body Mass Index 19.9 Const General: comfortable Nutritional Appearance: well nourished Orientation/consciousness: patient oriented x3 Resp Effort & Inspection: normal respiratory effort GI Other: Well-healed incision in the left groin with a normal healing ridge. A small portion of the Polysorb suture is noted and was removed using a hemostat. No hernia noted with Valsalva maneuvers. No evidence of infection, hematoma or seroma. Other: No evidence of scrotal edema/hematoma Neuro General: patient oriented x3 Extrem Other: No edema. Minimal ecchymosis in the left upper inner thigh Assessment & Plan Assessment & Plan (1) Left inguinal hernia: Code(s): K40.90 - Unilateral inguinal hernia, without obstruction or gangrene, not specified as recurrent Category: Medical Plan Patient returns for wound check approximately 1 month following repair of a recurrent left inguinal hernia with mesh. His wounds are clean, dry, and intact without evidence of hernia recurrence or infection. A small suture remnant was removed using a hemostat today. He will return in approximately 2 weeks at his previously scheduled appointment. Coding Level of Care Code Global (59475) Diagnoses Left inguinal hernia K40.90
[2024-07-16 15:16] VITALS: BMI 19.9
--- OUTSIDE RECORDS SUMMARY | 2024-07-16 17:50 | XMS_ITS | Encounter Summary ---
Author Organization [facility] Address [address] [place] [address] Care Team Providers Care Spinning Bath Patroller Name Role Phone Unknown Primary Care Provider [phone] Encounter Details Date Type Department Care Team (Late st Contact Info) Description 12/09/2023 7:19 PM EDT Hospital Encounter [facility] [address] [place] [address] Sandy Cheema PA-C [address] [place] [address] Social History Tobacco Use Types Packs/Day Years Used Date Smoking Tobacco: Never Smokeless Tobacco: Never Sex and Gender Information Value Date Recorded Sex Assigned at Not on file Legal Sex Male 12:21 PM EDT Gender Identity Not on file [...] joint degenerativearthrosis. Sandy Cheema PA-C [facility] Final Result documented in this encounter Visit Diagnoses Not on filedocumented in this encounter Care Teams Spinning Bath Patroller Relationship Specialty Start Date End Date Unknown Unknow Provider Address PCP - General 04/01/21 documented as of this encounter
--- OUTSIDE RECORDS SUMMARY | 2024-07-16 17:50 | XMS_ITS | Clinical Summary ---
Author Organization [facility], Address [address] [place] [address] [place] [address] Phone Care Team Providers Care Dental Technician Instructor Name Role Phone Jj Seals MD Primary Care Provider [phone] Allergies Active Allergy Reactions Criticality Noted Date [...] XL) 25 MG 24 hr tablet Take 25 mg by mouth 1 (one) time each day 2 Active pantoprazole (PROTONIX) 40 MG EC tablet 2 Active Jardiance 10 MG tablet 3 Active ketoconazole (NIZORAL) 2 % shampoo 2 Active spironolactone (ALDACTONE) 25 MG tablet Take 12.5 mg by mouth 1 (one) time each day 3 Active valsartan (DIOVAN) 40 MG tablet Take 20 mg by mouth 1 (one) time each day 3 Active sertraline (ZOLOFT) 50 MG tablet 4 Active Active Problems Problem Noted Date Diagnosed Date Hyperlipidemia 05/22/2022 Coronary arteriosclerosis 05/22/2022 Gastroesophageal reflux disease 01/09/2021 Hypertension 02/08/2020 Encounters Date Type Department Care Team Description 06/29/2024 10:45 AM EDT Office Visit [facility] [address] [place] [address] Smooth Ernst MD Hypertension (Primary Dx); Coronary arteriosclerosis, not otherwise specified; Pure hypercholesterolemia, not otherwise specified 04/29/2024 Documentation Only [facility] [address] [place] [id number] Berkley Harper MA from Last 3 Months Immunizations Immunization Administration Dates Next Due Influenza Split High [...] Sign Reading Time Taken Comments Blood Pressure 110/64 06/29/2024 11:15 AM EDT Pulse - - Temperature - - Respiratory Rate - - Oxygen Saturation - - Inhaled Oxygen Concentration - - Weight - - Height - - Body Mass Index - - Plan of Treatment Upcoming Encounters Date Type Department Care Team (Late st Contact Info) Description 12/28/2024 2:00 PM EDT Office Visit [facility] [address] [place] [phone] Smooth Ernst MD [address] [place] [address] Health Maintenance Due Date Last Done Comments Colorectal Cancer Screening: Annual FOBT 2001 Colorectal Cancer Screening: Colonoscopy 2001 Colorectal Cancer Screening: Sigmoidoscopy 2001 Pneumococcal Vaccine: 50+ Years (2 of 2 - PPSV23) 07/18/2017 05/23/2017 Influenza Vaccine (Season Ended) 2024 04/04/2021, 12/30/2019, 12/30/2019, Additional history exists Pneumococcal Vaccine: Peds (0 to 5 Years) and At-Risk Patients (6 to 49 Years) Discontinued 05/23/2017 Hepatitis B Vaccine Aged Out No longe r eligible based on patient's age to complete this topic Insurance Medicare [facility] Care Teams Dental Technician Instructor Relationship Specialty Start Date End Date Jj Seals MD [address] [place], [place] PCP - General Internal Medicine 01/18/20
--- OUTSIDE RECORDS SUMMARY | 2024-07-16 17:50 | XMS_ITS | Encounter Summary ---
Author Organization [facility] [place], Address [address] [place] [phone] Phone Care Team Providers Care Scooping Machine Tender Name Role Phone Jj Seals MD Primary Care Provider [phone] Encounter Details Date Type Department Care Team (Late st Contact Info) Description 04/29/2024 Documentation Only [facility] [address] [place] [address] [place], [place] [address] [place] [address] Social History Tobacco Use Types [...] Visit [facility] [address] [place] [phone] Smooth Ernst MD [address] [place] [address] documented as of this encounter Visit Diagnoses Not on filedocumented in this encounter Care Teams Scooping Machine Tender Relationship Specialty Start Date End Date Jj Seals MD [address] [place], [place] PCP - General Internal Medicine 01/18/20 documented as of this encounter
--- OUTSIDE RECORDS SUMMARY | 2024-07-16 17:50 | XMS_ITS | Clinical Summary ---
Author Organization [facility] [employer] Address [address] [place], [place] [address] Phone Care Team Providers Care Lift Operator Name Role Phone Jj Seals MD Primary Care Provider [phone] Allergies Active Allergy Reactions Criticality Noted Date [...] order panel; Future HFrEF (heart failure with re duced ejection fraction) (CMS/HCC V24, CMS/HCC V28) 07/12/2021 ST elevation myocardial infa rction involving left anterior descending (LAD) coronary artery (CMS/HCC V24, CMS/HCC V28) 07/12/2021 Thoracic aortic aneurysm (CMS/HCC V24) 2 Transient elevated blood pressure 07/11/2021 Bilateral tinnitus 05/22/2021 GERD (gastroesophageal reflux disease) 2 IBS (irritable bowel syndrome) 05/22/2021 Insomnia 05/22/2021 Ascending aorta dilatation (CMS/HCC V24) 022 Assessment & Plan (02/24/2024 5:33 PM EST): [...] Type Department Care Team Description 06/09/2024 Telephone [facility] 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 Hypertension IBS (irritable bowel syndrome) Insomnia 05/2021 Mixed hyperlipidemia 05/16/2021 Myositis PFO (patent foramen ovale) 05/16/2021 Thoracic aortic aneurysm ([facility] V24) Family History Medical History Relation Name Comments [...] Vaccines (1 of 2) 2002 RSV Immunization Adult Patients (1 - Risk 60-74 years 1-dose [...] age to complete this topic Meningococcal B Vaccine Aged Out No l onger eligible based on patient's age to complete this topic RSV Immunization Patients Under 20 months Aged Out No longer eligible based on patient's age to complete this topic Varicella Vaccines Aged Out No longer eligible based on patient's age to complete this topic Procedures Procedure Name Priority Date/Time Associated Diagnosis Comments COLONOSCOPY Routine 07/19/2020 from Last 3 Months or Most Recently Relevant to Health Maintenance Results * Colonoscopy (07/19/2020) Colonoscopy no interpretation , abstracted Anatomical Region Laterality Modality Other us Historical Provider MD HEALTH MAINTENANCE Final Result from Last 3 Months or Most Recently Relevant to Health Maintenance Insurance MEDICARE [facility] Care Teams Lift Operator Relationship Specialty Start Date End Date Jj Seals MD [address] [address] PCP - General Internal Medicine 02/23/20
--- OUTSIDE RECORDS SUMMARY | 2024-07-16 17:50 | XMS_ITS | Clinical Summary ---
Author Organization [facility] Address [address] [place] [address] Care Team Providers Care Manufacturing Scheduler Name Role Phone Unknown Primary Care Provider [phone] Allergies Active Allergy Reactions Criticality Noted Date [...] Family Unable to Define Medium 07/10/2022 Medications atorvastatin (LIPITOR) 80 MG tablet 2 Active clonazePAM (KlonoPIN) 0.5 MG tablet 3 Active clopidogrel (PLAVIX) 75 MG tablet 2 Active cyanocobalamin (VITAMIN B12) 1000 MCG tablet Take 100 mcg by mouth. Active Jardiance 10 MG tablet 3 Active lactase (LACTAID) 3000 units tablet Take 3,000 Units by mouth Once before discharge. Active metoPROLOL SUCCINATE (TOPROL-XL) 25 MG 24 hr tablet Take 12.5 mg by mouth. 2 Active valsartan (DIOVAN) 40 MG tablet 3 Active valACYclovir (VALTREX) 500 MG tablet See Instructions, TAKE 1 TABLET BY MOUTH EVERY 12 HOURS FOR 3 DAYS THEN TAKE 1 TABLET DAILY, # 90 tablet, Refills 0, Maintenance, 05/08/22 13:12:00 EST, Instructions Replace Required Details, Route to Pharmacy Electronically, [facility] #[id number], 1... 3 Active tadalafil (CIALIS) 10 MG tablet Take 1 tablet by mouth. 2 Active PANTOprazole (PROTONIX) 40 MG EC tablet 3 Active finasteride (PROPECIA) 1 MG tablet Take 1 tablet by mouth. 2 Active aspirin enteric coated (ECOTRIN LOW STRENGTH) 81 MG EC tablet Take 81 mg by mouth. 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 30 tablet 3 Active colchicine (COLCRYS) 0.6 mg tablet 4 Active PANTOprazole (PROTONIX) 40 MG EC tablet Take 40 mg by mouth daily. 3 Active clotrimazole-be tamethasone (LOTRISONE) creamIndication s:Rash Apply topically 2 (two) times a day. 45 g 4 Active Immunizations Immunization Administration Dates Next Due Covid-19 mRNA Primary [...] , 04/04/2021, Additional history exists COVID-19 Vaccine (2023- season) 2023 02/14/2021, 06/09/2020, 05/12/2020 Hepatitis B Vaccines Aged Out No long er eligible based on patient's age to complete this topic Insurance MEDICARE PART A & B [place] [id number] Care Teams Manufacturing Scheduler Relationship Specialty Start Date End Date Unknown Unknow Provider Address PCP - General 04/01/21
== END 2024-07-16 15:47 | disposition home or self-care (01) ==
LOC: HO.HGS 15:03
PROVIDERS: PCP Internal Medicine; Visit Provider Surgery
DX: K40.90 Unilateral inguinal hernia, without obstruction or gangrene, not specified as recurrent (principal)
CPT/HCPCS: 99024

== ENCOUNTER → 2024-07-16 15:02 | Outpatient (BNVA) | payer MEDICARE, SELFPAY | PROVIDERS: PCP Internal Medicine; Visit Provider Surgery | DX: K40.90 Unilateral inguinal hernia, without obstruction or gangrene, not specified as recurrent (principal) | CPT/HCPCS: 99212 ==

== ENCOUNTER 2024-08-03 11:50 | Outpatient (AMB) | payer MEDICARE, SELFPAY ==
--- NOTE | 2024-08-03 11:52 | MHC.OFFVIS ---
Vital Signs 08/03/24 11:58 Height 6 ft Weight 145 lb 8.081 oz BMI 19.7 BP 110/62 Blood Pressure Location Lt brachial Position Sitting Intake Visit Reasons: 1 mth f/u S/P bilateral inguinal hernia w/mesh Intake Note: Patient is seen in office for one month follow up visit, post bilateral inguinal hernia repair. Pt c/o: while walking 3 days ago experienced pain in the groin area, denies any other concerns Lace Finisher Required: No Accompanied by: Self / Same As Patient Allergies amoxicillin [From Augmentin] Allergy (Severe, Verified 08/03/24 11:58) Abdominal Pain, SOB azithromycin [From Zithromax] Allergy (Severe, Verified 08/03/24 11:58) Hives, swelling clavulanic acid [From Augmentin] Allergy (Severe, Verified 08/03/24 11:58) Abdominal Pain, SOB fluoxetine [From Prozac] Allergy (Severe, Verified 08/03/24 11:58) panic hyoscyamine [From Levbid] Allergy (Severe, Verified 08/03/24 11:58) dry mouth and unsteady Sulfa (Sulfonamide Antibiotics) Allergy (Severe, Verified 08/03/24 11:58) throat closes cephalexin [From Keflex] Allergy (Mild, Verified 08/03/24 11:58) Abdominal Pain erythromycin base Allergy (Mild, Verified 08/03/24 11:58) Rash mirtazapine Allergy (Mild, Verified 08/03/24 11:58) Agitated venlafaxine [From Effexor] Allergy (Mild, Verified 08/03/24 11:58) Agitated milk products Allergy (Mild, Uncoded 08/03/24 11:58) Gastrointestinal Upset Medication List - Last Reconciled 08/03/24 by Zurdo Lindsay MD aspirin 81 mg PO DAILY atorvastatin 80 mg PO BEDTIME biotin 5 mg PO DAILY clonazepam 0.5 mg PO BEDTIME PRN clopidogrel 75 mg PO BEDTIME colchicine 0.6 mg PO BEDTIME empagliflozin (Jardiance) 10 mg PO DAILY finasteride 1 mg PO BEDTIME ketoconazole 2% 1 appl topical DAILY metoprolol succinate ER 25 mg PO DAILY nitroglycerin 0.4 mg sublingual Q5M PRN pantoprazole 40 mg PO BEDTIME Saccharomyces boulardii (Resistance Formula Probiotic) 10,000 mmu cells PO DAILY sacubitril-valsartan 24-26 mg (Entresto) 1 tab PO BID spironolactone 12.5 mg PO DAILY tadalafil 10 mg PO DAILY PRN valacyclovir 250 - 500 mg PO DAILY valsartan 20 mg PO BEDTIME vit C,Z-Za-wozhi-lutein-zeaxan 250-90-40-1 mg (PreserVision AREDS-2) 1 tab PO BID HPI Comments Details: 74-year-old male patient returning following a left inguinal hernia repair with mesh on 06/15/2024. Since his last visit he feels improved with decreased pain. Last week he began to do some stretching exercises and noted a sharper pain in the left groin. He feels a bump in the incision and would like to be checked for recurrent hernia. He denies any nausea or vomiting. He continues to have urinary symptoms and would like to see a urologist. He is also due for a colonoscopy which he typically has every 2 years. [facility] Medical History History of skin cancer Arthritis Back pain Neck pain Depression Anxiety Numbness and tingling of both feet Polyp, nasal sinus Cardiomyopathy History of palpitations Ascending aortic aneurysm Patent foramen ovale Labile hypertension IBS (irritable bowel syndrome) Hyperlipidemia History of anterior wall myocardial infarction Hiatal hernia GERD (gastroesophageal reflux disease) Coronary artery disease Surgical History History of left inguinal hernia repair (06/15/24) History of surgery on arm H/O heart artery stent Hx of angioplasty Hx of cardiac catheterization Hx of colonoscopy Hx of varicose vein ligation and stripping (~1981) Hx of right inguinal hernia repair (~1981) Social History Household Members: None Housing: House Are you a primary career guidance technician to a significant other at home: No Do you presently have visiting nurse or other home services: No 75 years or older and lives alone: No Alcohol intake: never Comment: COUNTS CORRECT Patient Tobacco Use Status: Never used Tobacco service: No Review of Systems Const All systems reviewed & are unremarkable except as noted in HPI and below Physical Exam Vital Signs: Last Vital Signs BP 110/62 08/03/24 11:58 BMI result Body Mass Index 19.7 Const General: no acute distress Nutritional Appearance: well nourished and thin Orientation/consciousness: patient oriented x3 Resp Effort & Inspection: normal respiratory effort GI Other: Well-healed incision in the left groin with a normal healing ridge. No hernias noted with Valsalva maneuvers. No evidence of wound infection, seroma or hematoma. No definite hernia noted on the right side. Neuro General: patient oriented x3 Extrem General: Yes normal to inspection Assessment & Plan Assessment & Plan (1) Left inguinal hernia: Code(s): K40.90 - Unilateral inguinal hernia, without obstruction or gangrene, not specified as recurrent Category: Medical Plan 74-year-old male patient returning 1 month following repair of a left inguinal hernia with mesh. His wounds are healing nicely with no evidence of wound infection or hernia recurrence. He may now return to normal activity without restrictions and should follow up as needed. He may proceed with colonoscopy as usual. Coding Level of Care Code Global (05743) Diagnoses Left inguinal hernia K40.90
[2024-08-03 11:58] VITALS: BP 110/62; BMI 19.7
--- OUTSIDE RECORDS SUMMARY | 2024-08-03 13:34 | XMS_ITS | Encounter Summary ---
Author Organization [facility], Address [address] [place] [address] Phone Care Team Providers Care Car Repairer Name Role Phone Jj Seals MD Primary Care Provider [phone] Encounter Details Date Type Department Care Team (Late st Contact Info) Description 04/29/2024 Documentation Only [facility] [address] [place] [address] Berkley HarperBELLE [place], [place] [address] [place] [address] Social History Tobacco Use Types [...] Visit [facility] [address] [place] [address] Smooth Ernst MD [address] [place] [place] [address] documented as of this encounter Visit Diagnoses Not on filedocumented in this encounter Care Teams Car Repairer Relationship Specialty Start Date End Date Jj Seals MD [address] [place], [place] PCP - General Internal Medicine 01/18/20 documented as of this encounter
--- OUTSIDE RECORDS SUMMARY | 2024-08-03 13:34 | XMS_ITS | Clinical Summary ---
Author Organization [facility] [employer] Address [address] [place], [place] [address] Phone Care Team Providers Care Clinical Lab Technologist Name Role Phone Jj Seals MD Primary Care Provider [phone] Allergies Active Allergy Reactions Criticality Noted Date [...] Type Department Care Team Description 06/09/2024 Telephone [facility] [address] [place] [address] Zurdo Dunne MD No Call [...] operation CARDIAC CATHETERIZATION DONE ON 12/04/2023 AT [place] [facility] INDICATIONS:UNSTABLE ANGINA Medical History Medical History Date Comments Anxiety Ascending aorta dilatation ([facility] V24) 05/2021 Bilateral tinnitus 05/2021 Disease of pericardium 05/2021 GERD (gastroesophageal reflux disease) 05/2021 H/O irritable bowel syndrome History of colon polyps 05/2021 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 Hypertension IBS (irritable bowel syndrome) Insomnia 05/2021 Mixed hyperlipidemia 05/16/2021 Myositis PFO (patent foramen ovale) 05/16/2021 Thoracic aortic aneurysm ([facility] V24) Family History Medical History Relation Name [...] Test 03/10/2022 01/17/2021 Depression Screening 02/19/2023 02/19/2022 COVID-19 Vaccine ( season) 2024 02/19/2024, 12/11/2021, 02/14/2021, Additional history exists Colorectal Cancer Screening: Colonoscopy 07/19/2030 07/19/2020 DTaP,Tdap,and Td Vaccines (4 - Td or Tdap) 02/28/2031 02/28/2021, 10/20/2008, 04/01/2000 Influenza Vaccine Completed 01/14/2024, , 12/25/2021, Additional history exists HIB Vaccines Aged Out [...] Anatomical Region Laterality Modality Other Historical Provider MD HEALTH MAINTENANCE Final Result from Last 3 Months or Most Recently Relevant to Health Maintenance Insurance MEDICARE [facility] Care Teams Clinical Lab Technologist Relationship Specialty Start Date End Date Jj Seals MD [address] [address] PCP - General Internal Medicine 02/23/20
--- OUTSIDE RECORDS SUMMARY | 2024-08-03 13:34 | XMS_ITS | Encounter Summary ---
Author Organization [facility], [place] [address] Phone Care Team Providers Care Distribution Operations Supervisor Name Role Phone Jj Seals MD Primary Care Provider [phone] Encounter Details Date Type Department Care Team (Late st Contact Info) Description 07/27/2024 Documentation Only [facility] [address] [place] [address] [place], [place] [address] [place] [phone] Social History Tobacco Use Types Packs/Day Years [...] Visit [facility] [address] [place] [phone] Smooth Ernst MD [address] [place] [address] documented as of this encounter Visit Diagnoses Not on filedocumented in this encounter Care Teams Distribution Operations Supervisor Relationship Specialty Start Date End Date Jj Seals MD [address] [place], [place] PCP - General Internal Medicine 01/18/20 documented as of this encounter
--- OUTSIDE RECORDS SUMMARY | 2024-08-03 13:34 | XMS_ITS | Clinical Summary ---
Author Organization [facility] Address [address] [place] [address] Care Team Providers Care Clinical Manager Name Role Phone Unknown Primary Care Provider [phone] Allergies Active Allergy Reactions Criticality Noted Date [...] Replace Required Details, Route to Pharmacy Electronically, [facility] #[id number], 1... 3 Active tadalafil (CIALIS) 10 MG [...] topic Insurance MEDICARE PART A & B [place] [id number] Care Teams Clinical Manager Relationship Specialty Start Date End Date Unknown Unknow Provider Address PCP - General 04/01/21
--- OUTSIDE RECORDS SUMMARY | 2024-08-03 13:34 | XMS_ITS | Encounter Summary ---
Author Organization [facility] Address [address] [place] [address] Care Team Providers Care Automotive Leasing Sales Representative Name Role Phone Unknown Primary Care Provider [phone] Encounter Details Date Type Department Care Team (Late st Contact Info) Description 12/09/2023 7:19 PM EDT Hospital Encounter [facility] [address] [place] [address] Sandy Cheema PA-C [address] [place] [address] Social History Tobacco Use Types Packs/Day Years [...] on filedocumented in this encounter Care Teams Automotive Leasing Sales Representative Relationship Specialty Start Date End Date Unknown Unknow Provider Address PCP - General 04/01/21 documented as of this encounter
--- OUTSIDE RECORDS SUMMARY | 2024-08-03 13:34 | XMS_ITS | Clinical Summary ---
Author Organization [facility], Address [address] [place] [address] [place] [address] Phone Care Team Providers Care Beater Room Supervisor Name Role Phone Jj Seals MD Primary Care Provider [phone] Allergies Active Allergy Reactions Criticality Noted Date [...] Encounters Date Type Department Care Team Description 07/27/2024 Documentation Only [facility] [address] [place] [address] Doretha Bradley [place] 06/29/2024 10:45 AM EDT Office Visit [facility] [address] [place] [address] Smooth Ernst MD Hypertension (Primary Dx); Coronary arteriosclerosis, not otherwise specified; Pure hypercholesterolemia, not otherwise specified from Last 3 Months Immunizations Immunization Administration [...] Visit [facility] [address] [place] [phone] Smooth Ernst MD [address] [place] [address] Health Maintenance Due Date Last [...] age to complete this topic Insurance Medicare [facility] Care Teams Beater Room Supervisor Relationship Specialty Start Date End Date Jj Seals MD [address] [place], [place] PCP - General Internal Medicine 01/18/20
== END 2024-08-03 12:11 | disposition home or self-care (01) ==
LOC: HO.HGS 11:50
PROVIDERS: PCP Internal Medicine; Visit Provider Surgery
DX: K40.90 Unilateral inguinal hernia, without obstruction or gangrene, not specified as recurrent (principal)
CPT/HCPCS: 99024

== ENCOUNTER → 2024-08-03 11:50 | Outpatient (BNVA) | payer MEDICARE, SELFPAY | PROVIDERS: PCP Internal Medicine; Visit Provider Surgery | DX: K40.90 Unilateral inguinal hernia, without obstruction or gangrene, not specified as recurrent (principal) | CPT/HCPCS: 99212 ==

== ENCOUNTER 2024-08-11 12:53 | Outpatient (AMB) | payer MEDICARE, SELFPAY ==
--- NOTE | 2024-08-11 13:10 | A.OFFVIS_ITS ---
Intake Visit Reasons: bilateral testicular pain Intake Note: Patient is present for bilateral,testicular pain Urology Medication:tadalafil Antibiotic Allergy:amoxicillin,azithromycin,erythromycin Blood Thinner:aspirin Lift Builder Whole Required: No Allergies amoxicillin [From Augmentin] Allergy (Severe, Verified 08/11/24 13:12) Abdominal Pain, SOB azithromycin [From Zithromax] Allergy (Severe, Verified 08/11/24 13:12) Hives, swelling clavulanic acid [From Augmentin] Allergy (Severe, Verified 08/11/24 13:12) Abdominal Pain, SOB fluoxetine [From Prozac] Allergy (Severe, Verified 08/11/24 13:12) panic hyoscyamine [From Levbid] Allergy (Severe, Verified 08/11/24 13:12) dry mouth and unsteady Sulfa (Sulfonamide Antibiotics) Allergy (Severe, Verified 08/11/24 13:12) throat closes cephalexin [From Keflex] Allergy (Mild, Verified 08/11/24 13:12) Abdominal Pain erythromycin base Allergy (Mild, Verified 08/11/24 13:12) Rash mirtazapine Allergy (Mild, Verified 08/11/24 13:12) Agitated venlafaxine [From Effexor] Allergy (Mild, Verified 08/11/24 13:12) Agitated milk products Allergy (Mild, Uncoded 08/11/24 13:12) Gastrointestinal Upset HPI Comments Details: Michael is a pleasant male. He is a patient of Dr. Seals. He is seen for the following urologic conditions - scrotal tenderness Persistent pain left epididymis On exam has normal testicle with slight discomfort on left epididymis Prior groin surgery 2 months ago Reassurance provided Would not intervene until six-month after surgery Recommended deep tissue massage or groin area [facility] Medical History History of skin cancer Arthritis Back pain Neck pain Depression Anxiety Numbness and tingling of both feet Polyp, nasal sinus Cardiomyopathy History of palpitations Ascending aortic aneurysm Patent foramen ovale Labile hypertension IBS (irritable bowel syndrome) Hyperlipidemia History of anterior wall myocardial infarction Hiatal hernia GERD (gastroesophageal reflux disease) Coronary artery disease Surgical History History of left inguinal hernia repair (06/15/24) History of surgery on arm H/O heart artery stent Hx of angioplasty Hx of cardiac catheterization Hx of colonoscopy Hx of varicose vein ligation and stripping (~1981) Hx of right inguinal hernia repair (~1981) Social History Household Members: None Housing: House Are you a primary home health care coordinator to a significant other at home: No Do you presently have visiting nurse or other home services: No 75 years or older and lives alone: No Alcohol intake: never Comment: COUNTS CORRECT Patient Tobacco Use Status: Never used Tobacco service: No Review of Systems Const Denies chills and Denies fever(s) Card Reports no additional complaints and Denies syncope Resp Denies cough GI Denies abdominal pain and Denies heartburn Reports as per HPI and Denies change in libido Neuro Denies syncope Psych Denies change in libido Endo Denies change in libido Physical Exam Const General: cooperative, healthy appearing, comfortable and no acute distress Orientation/consciousness: patient oriented x3 HEENT Face and sinus: Yes normal facial exam Mouth: moist mucous membranes Neck Neck: Yes normal visual inspection, Yes full ROM and Yes trachea midline Chest Chest palpation & inspection: normal inspection of the chest Resp Effort & Inspection: normal respiratory effort, able to speak in complete sentences and no respiratory distress GI Inspection: Yes normal to inspection Back/Spine/Pelvis Cervical Spine: normal cervical lordosis Thoracic/Lumbar Spine: thoracic and lumbar spine normal to inspection Skin General skin exam: no rashes or lesions noted Neuro General: patient oriented x3, gait normal, tone normal and moves all extremities Extrem General: Yes normal to inspection and Yes capillary refill normal Assessment & Plan Assessment & Plan (1) Erectile dysfunction due to arterial insufficiency: Code(s): N52.01 - Erectile dysfunction due to arterial insufficiency Category: Medical Plan Follow-up six-month Patient Instructions: This note is constructed using voice recognition software. While every effort has been made to ensure accuracy chemical plant technical director errors may have been included. Imaging studies, laboratory and physical exam results were discussed and reviewed in detail. No major barriers to patient understanding were identified. An opportunity to ask questions regarding the treatment plan was provided. All questions were answered. The patient expressed understanding and agreement with the above treatment plan. The patient is aware they should contact our office by phone for worsening of their current condition or the appearance of new urologic symptoms. Compliance is encouraged with any medications and followup testing that is ordered. It is a privilege to participate in the urologic care of your patient. If you have any questions or concerns regarding treatment for the above conditions, or other urologic issues, please do not hesitate to contact me. The office telephone contact is [phone]. Sincerely, Dr Lev Morton MD, [facility] - Urology Compassionate Specialist Care for the Genitourinary System Coding Level of Care Code New Pt Level 3 (04276) Diagnoses Erectile dysfunction due to arterial insufficiency N52.01
--- OUTSIDE RECORDS SUMMARY | 2024-08-11 13:57 | XMS_ITS | Clinical Summary ---
Author Organization [facility] [employer] Address [address] [place], [place] [address] Phone Care Team Providers Care Toe Laster Name Role Phone Jj Seals MD Primary Care Provider [phone] Allergies Active Allergy Reactions Criticality Noted Date [...] Department Care Team Description 06/09/2024 Telephone [facility] [address] [place] [address] Zurdo Dunne MD No Call [...] operation CARDIAC CATHETERIZATION DONE ON 12/04/2023 AT [facility] [place] INDICATIONS:UNSTABLE ANGINA Medical History Medical History Date Comments Anxiety Ascending aorta dilatation (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 V24) Family History Medical History [...] Recently Relevant to Health Maintenance Insurance MEDICARE [facility] Care Teams Toe Laster Relationship Specialty Start Date End Date Jj Seals MD [address] [phone] PCP - General Internal Medicine 02/23/20
--- OUTSIDE RECORDS SUMMARY | 2024-08-11 13:57 | XMS_ITS | Clinical Summary ---
Author Organization [facility], Address [address] [place] [address] [place] [address] Phone Care Team Providers Care Rail Car Repair Carman Name Role Phone Jj Seals MD Primary Care Provider [phone] Allergies Active Allergy Reactions Criticality Noted Date [...] Only [facility] [address] [place] [address] Doretha Bradley MA 06/29/2024 10:45 AM EDT Office Visit [facility] [address] [place] [address] Smooth Ernst MD Hypertension (Primary Dx); Coronary [...] Visit [facility] [employer] [address] [place] [phone] Smooth Ernst MD [address] [place] [address] Health Maintenance Due Date Last [...] age to complete this topic Insurance Medicare [facility] Care Teams Rail Car Repair Carman Relationship Specialty Start Date End Date Jj Seals MD [address] [place], [place] PCP - General Internal Medicine 01/18/20
--- OUTSIDE RECORDS SUMMARY | 2024-08-11 13:57 | XMS_ITS | Encounter Summary ---
Author Organization [facility], Address [address] [place] [address] Phone Care Team Providers Care Rn Otolaryngology Name Role Phone Jj Seals MD Primary Care Provider [phone] Encounter Details Date Type Department Care Team (Late st Contact Info) Description 04/29/2024 Documentation Only [facility] [address] [place] [address] [place] [address] [place] [address] Social History Tobacco Use Types [...] Visit [facility] [address] [place] [phone] Smooth Ernst MD [address] [place] [address] documented as of this encounter Visit Diagnoses Not on filedocumented in this encounter Care Teams Rn Otolaryngology Relationship Specialty Start Date End Date Jj Seals MD [address] [place], [place] PCP - General Internal Medicine 01/18/20 documented as of this encounter
--- OUTSIDE RECORDS SUMMARY | 2024-08-11 13:57 | XMS_ITS | Encounter Summary ---
Author Organization [facility] Address [address] [place] [address] Care Team Providers Care Hearing Therapist Name Role Phone Unknown Primary Care Provider [phone] Encounter Details Date Type Department Care Team (Late st Contact Info) Description 12/09/2023 7:19 PM EDT Hospital Encounter [facility] [address] [place] [address] Sandy Cheema PA-C [address] [place] [address] Social History Tobacco Use Types Packs/Day Years [...] on filedocumented in this encounter Care Teams Hearing Therapist Relationship Specialty Start Date End Date Unknown Unknow Provider Address PCP - General 04/01/21 documented as of this encounter
--- OUTSIDE RECORDS SUMMARY | 2024-08-11 13:57 | XMS_ITS | Clinical Summary ---
Author Organization [facility] Address [address] [place] [address] Care Team Providers Care Instrument Repair Supervisor Name Role Phone Unknown Primary Care Provider [phone] Allergies Active Allergy Reactions Criticality Noted Date [...] Replace Required Details, Route to Pharmacy Electronically, [id number], 1... 3 Active tadalafil (CIALIS) 10 MG [...] - Risk 60-74 years 1-dose series) 2012 COVID-19 Vaccine ( season) 2023 02/14/2021, 06/09/2020, 05/12/2020 Influenza Vaccine 10/30/2024 02/04/2023, , 04/04/2021, Additional history exists Hepatitis B Vaccines Aged Out No long er eligible based on patient's age to complete this topic Insurance MEDICARE [place] [employer] [place] [id number] Care Teams Instrument Repair Supervisor Relationship Specialty Start Date End Date Unknown Unknow Provider Address PCP - General 04/01/21
--- OUTSIDE RECORDS SUMMARY | 2024-08-11 13:57 | XMS_ITS | Encounter Summary ---
Author Organization [facility], Address [place] [place] [address] Phone Care Team Providers Care Hospital Cleaner Name Role Phone Jj Seals MD Primary Care Provider Encounter Details Date Type Department Care Team (Late st Contact Info) Description 07/27/2024 Documentation Only [facility] [address] [address] [place] [address] [place] [phone] Social History Tobacco Use Types Packs/Day Years [...] Visit [facility] [address] [address] Smooth Ernst MD [address] [place] [address] documented as of this encounter Visit Diagnoses Not on filedocumented in this encounter Care Teams Hospital Cleaner Relationship Specialty Start Date End Date Jj Seals MD [address] [place], [place] PCP - General Internal Medicine 01/18/20 documented as of this encounter
== END 2024-08-11 14:22 | disposition home or self-care (01) ==
LOC: HO.HUSH 12:53
PROVIDERS: PCP Internal Medicine; Visit Provider Urology
DX: N52.01 Erectile dysfunction due to arterial insufficiency (principal)
CPT/HCPCS: 99203

== ENCOUNTER → 2024-08-11 12:53 | Outpatient (BNVA) | payer MEDICARE, SELFPAY | PROVIDERS: PCP Internal Medicine; Visit Provider Urology | DX: N52.01 Erectile dysfunction due to arterial insufficiency (principal) | CPT/HCPCS: 99202 ==